=== PATIENT | male | born 1980 | race Caucasian/White ===

== ENCOUNTER 2017-04-03 00:49 | Emergency (ER) | payer SELFPAY ==
[2017-04-03 00:54] VITALS: TEMP 97.9
[2017-04-03] MEDS ORDERED: ONDANSETRON 4 MG/2 ML VIAL IVP ONE (01:05)
[2017-04-03] MEDS ORDERED: NS 1,000 ML IV ONE (01:05)
--- NOTE | 2017-04-03 01:05 | EDPHY ---
H & P Stated Complaint: Abd/back pain, N/D, sweats x3 days HPI/ROS: HPI CHIEF COMPLAINT: Abdominal pain, diarrhea, nausea HISTORY OF PRESENT ILLNESS: Patient very pleasant 37-year-old male significant past medical history for methamphetamine abuse, he presents to the emergency room with 24 hours of nausea, abdominal pain mainly right-sided right lower quadrant right upper quadrant, diarrhea that is nonbloody. Associated nausea no fever no vomiting. Denies chest pain or shortness of breath. Pain is currently 410. Diffuse. Mainly right-sided. Additional note patient is requesting STI testing. He is unsure if he is a current gonorrhea chlamydia. He has no symptoms but states that him and his ex- girlfriend has been passing around an STI. Past Medical History: Methamphetamine abuse Past Surgical History: Tonsillectomy Social History: Daily methamphetamine use Family History: Noncontributory ROS REVIEW OF SYSTEMS: A comprehensive 10 point review of systems is otherwise negative aside from elements mentioned in the history of present illness. Exam Constitutional appears well nontoxic triage nursing summary reviewed, vital signs reviewed, awake/alert. Eyes normal conjunctivae and sclera, EOMI, PERRLA. HENT normal inspection, atraumatic, moist mucus membranes, no epistaxis, neck supple/ no meningismus, no raccoon eyes. Respiratory clear to auscultation bilaterally, normal breath sounds, no respiratory distress, no wheezing. Cardiovascular rate normal, regular rhythm, no murmur, no edema, distal pulses normal. Gastrointestinal soft, mild tender palpation right upper quadrant and right side of the abdomen right lower quadrant, no rebound, no guarding, normal bowel sounds, no distension, no pulsatile mass. Genitourinary no CVA tenderness. Musculoskeletal no midline vertebral tenderness, full range of motion, no calf swelling, no tenderness of extremities, no meningismus, good pulses, neurovascularly intact. Skin pink, warm, & dry, no rash, skin atraumatic. Neurologic awake, alert and oriented x 3, AAOx3, moves all 4 extremities equally, motor intact, sensory intact, CN II-XII intact, normal cerebellar, normal vision, normal speech. Psychiatric normal mood/affect. Heme/Lymph/Immune no lymphadenopathy. Differential diagnosis includes but is not limited to and in no particular order : Bowel obstruction, appendicitis, gallbladder disease, diverticulitis, colitis , enteritis, perforated viscus, gastritis, GERD, esophagitis, urinary tract infection, pyelonephritis, kidney stones Medical Decision Making: IV establishment, IV fluid bolus, Zofran for nausea, morphine for pain control, stool studies, abdominal labs, CT scan abdomen pelvis with IV contrast rule out acute appendicitis re-evaluate. Re-evaluation: CT scan of the abdomen pelvis with IV contrast The results of the study are constipation. Otherwise unremarkable CT scan. The study was read by Dr. Valdes I viewed the images myself on the PACS system. 0340: I did re-evaluate this patient this time resting comfortably no acute distress. Abdomen is soft nontender. He feels better. Blood work is reviewed. CT scan reviewed. I do not appreciate anything acute he feels better. Re-examination abdomen is soft. Requesting be discharged home. Source: Patient - Personal History Current Tetanus/Diphtheria Vaccine: No Current Tetanus Diphtheria and Acellular Pertussis (TDAP): No - Medical/Surgical History Hx Asthma: No Hx Chronic Respiratory Disease: No Hx Diabetes: No Hx Cardiac Disease: No Hx Renal Disease: No Hx Cirrhosis: No Hx Alcoholism: No Hx HIV/AIDS: No Hx Splenectomy or Spleen Trauma: No Other PMH: tonsillectomy - Social History Smoking Status: Former smoker Constitutional: Initial Vital Signs Temperature (C) 36.6 C 04/03/17 00:50 Heart Rate 112 H 04/03/17 00:50 Respiratory Rate 18 04/03/17 00:50 Blood Pressure 129/92 H 04/03/17 00:50 O2 Sat (%) 97 04/03/17 00:50 O2 Delivery Mode Room Air Allergies/Adverse Reactions: No Known Allergies Allergy (Verified 04/03/17 00:54) Home Medications: Medication Instructions Recorded NK [No Known Home Meds] 04/03/17 Medical Decision Making - Data Points Laboratory Results: Laboratory Results 04/03/17 01:13 04/03/17 01:13 04/03/17 04/03/17 04/03/17 02:45 02:45 01:13 WBC RBC Hgb Hct MCV MCH MCHC RDW Plt Count MPV Neut % (Auto) Lymph % (Auto) [place] % (Auto) Eos % (Auto) Baso % (Auto) Nucleat RBC Rel Count Absolute Neuts (auto) Absolute Lymphs (auto) Absolute Monos (auto) Absolute Eos (auto) Absolute Basos (auto) Absolute Nucleated RBC Immature Gran % Immature Gran # Sodium 143 mEq/L mEq/L (134-144) Potassium 4.2 mEq/L mEq/L (3.5-5.2) Chloride 104 mEq/L mEq/L (97-110) Carbon Dioxide 25 mEq/l mEq/l (22-31) Anion Gap 14 mEq/L mEq/L (8-16) BUN 14 mg/dL mg/dL (7-23) Creatinine 0.9 mg/dL mg/dL (0.7-1.3) Estimated GFR > 60 Glucose 94 mg/dL mg/dL (70-100) Calcium 9.9 mg/dL mg/dL (8.5-10.4) Total Bilirubin 0.7 mg/dL mg/dL (0.1-1.4) Conjugated Bilirubin 0.3 mg/dL mg/dL (0.0-0.5) Unconjugated Bilirubin 0.4 mg/dL mg/dL (0.0-1.1) AST 27 IU/L IU/L (17-59) ALT 48 IU/L IU/L (21-72) Alkaline Phosphatase 55 IU/L IU/L (38-126) Total Protein 7.7 g/dL g/dL (6.3-8.2) Albumin 4.7 g/dL g/dL (3.5-5.0) Lipase 133 IU/L IU/L (23-300) Urine Color YELLOW Urine Appearance CLEAR Urine pH 6.0 (5.0-7.5) Ur Specific [place] > 1.035 H (1.002-1.030) Urine Protein NEGATIVE (NEGATIVE) Urine Ketones NEGATIVE (NEGATIVE) Urine Blood NEGATIVE (NEGATIVE) Urine Nitrate NEGATIVE (NEGATIVE) Urine Bilirubin NEGATIVE (NEGATIVE) Urine Urobilinogen NEGATIVE EU EU (0.2-1.0) Ur Leukocyte Esterase NEGATIVE (NEGATIVE) Urine Glucose NEGATIVE (NEGATIVE) N.gonorrhoeae RNA (TMA) Pending 04/03/17 01:13 WBC 6.78 10^3/uL 10^3/uL (3.80-9.50) RBC 5.56 10^6/uL 10^6/uL (4.40-6.38) Hgb 16.6 g/dL g/dL (13.7-17.5) Hct 48.5 % % (40.0-51.0) MCV 87.2 fL fL (81.5-99.8) MCH 29.9 pg pg (27.9-34.1) MCHC 34.2 g/dL g/dL (32.4-36.7) RDW 14.0 % % (11.5-15.2) Plt Count 271 10^3/uL 10^3/uL (150-400) MPV 9.8 fL fL (8.7-11.7) Neut % (Auto) 59.0 % % (39.3-74.2) Lymph % (Auto) 27.6 % % (15.0-45.0) [place] % (Auto) 10.0 % % (4.5-13.0) Eos % (Auto) 2.5 % % (0.6-7.6) Baso % (Auto) 0.6 % % (0.3-1.7) Nucleat RBC Rel Count 0.0 % % (0.0-0.2) Absolute Neuts (auto) 4.00 10^3/uL 10^3/uL (1.70-6.50) Absolute Lymphs (auto) 1.87 10^3/uL 10^3/uL (1.00-3.00) Absolute Monos (auto) 0.68 10^3/uL 10^3/uL (0.30-0.80) Absolute Eos (auto) 0.17 10^3/uL 10^3/uL (0.03-0.40) Absolute Basos (auto) 0.04 10^3/uL 10^3/uL (0.02-0.10) Absolute Nucleated RBC 0.00 10^3/uL 10^3/uL (0-0.01) Immature Gran % 0.3 % % (0.0-1.1) Immature Gran # 0.02 10^3/uL 10^3/uL (0.00-0.10) Sodium Potassium Chloride Carbon Dioxide Anion Gap BUN Creatinine Estimated GFR Glucose Calcium Total Bilirubin Conjugated Bilirubin Unconjugated Bilirubin AST ALT Alkaline Phosphatase Total Protein Albumin Lipase Urine Color Urine Appearance Urine pH Ur Specific [place] Urine Protein Urine Ketones Urine Blood Urine Nitrate Urine Bilirubin Urine Urobilinogen Ur Leukocyte Esterase Urine Glucose N.gonorrhoeae RNA (TMA) Medications Given: Discontinued Medications Sodium Chloride (Ns) 1,000 mls @ 0 mls/hr IV EDNOW ONE; Wide Open PRN Reason: Protocol Stop: 04/03/17 01:06 Last Admin: 04/03/17 01:22 Dose: 1,000 mls Morphine Sulfate (Morphine) 4 mg IVP EDNOW ONE Stop: 04/03/17 01:12 Last Admin: 04/03/17 01:24 Dose: 4 mg Ondansetron HCl (Zofran) 4 mg IVP EDNOW ONE Stop: 04/03/17 01:06 Last Admin: 04/03/17 01:22 Dose: 4 mg Departure - Departure Disposition: Home, Routine, Self-Care Clinical Impression: Abdominal pain Qualifiers: Abdominal location: generalized Qualified Code(s): R10.84 - Generalized abdominal pain Condition: Good Instructions: Acute Abdominal Pain (ED) Additional Instructions: 1. [place] diet next 24-48 hours. 2. Return to the ER for worsening abdominal pain fever vomiting. Referrals: NONE *PRIMARY CARE P,. [Primary Care Provider] - As per Instructions
[2017-04-03 01:42] LABS: % IMMATURE GRANULYOCYTES 0.3 % (0.0-1.1); ABSOLUTE IMMATURE GRANULOCYTES 0.02 10^3/uL (0.00-0.10); ADD DIFF? NO; ADD MORPH? NO; ADD SCAN? NO; ATYPICAL LYMPHOCYTE FLAG 0 (0-99); FRAGMENT RBC FLAG 0 (0-99); HEMATOCRIT 48.5 % (40.0-51.0); HEMOGLOBIN 16.6 g/dL (13.7-17.5); LEFT SHIFT FLG 0 (0-99); LIPEMIA HEMOLYSIS FLAG 90 (0-99); MEAN CELL HEMOGLOBIN 29.9 pg (27.9-34.1); MEAN CELL HEMOGLOBIN CONCENTR. 34.2 g/dL (32.4-36.7); MEAN CELL VOLUME 87.2 fL (81.5-99.8); MEAN PLATELET VOLUME 9.8 fL (8.7-11.7); PLATELET CLUMPS FLAG 0 (0-99); PLATELET COUNT 271 10^3/uL (150-400); RED BLOOD CELL COUNT 5.56 10^6/uL (4.40-6.38)
[2017-04-03] MEDS ORDERED: IOPAMIDOL (ISOVUE-300) 100 ML BTL ONE (01:48)
[2017-04-03 01:59] LABS: ALANINE AMINOTRANSFERASE 48 IU/L (21-72); ALBUMIN 4.7 g/dL (3.5-5.0); ALKALINE PHOSPHATASE 55 IU/L (38-126); ANION GAP 14 mEq/L (8-16); ASPARTATE AMINOTRANSFERASE 27 IU/L (17-59); BILIRUBIN,TOTAL 0.7 mg/dL (0.1-1.4); BILIRUBIN-CONJUGATED 0.3 mg/dL (0.0-0.5); BILIRUBIN-UNCONJUGATED 0.4 mg/dL (0.0-1.1); CALCIUM 9.9 mg/dL (8.5-10.4); CARBON DIOXIDE 25 mEq/l (22-31); CHLORIDE 104 mEq/L (97-110); CREATININE 0.9 mg/dL (0.7-1.3); GLOMERULAR FILTRATION RATE > 60; GLUCOSE 94 mg/dL (70-100); POTASSIUM 4.2 mEq/L (3.5-5.2); SODIUM 143 mEq/L (134-144); TOTAL PROTEIN 7.7 g/dL (6.3-8.2)
[2017-04-03 02:56] LABS: COLOR YELLOW; LEUKOCYTE ESTERASE,URINE NEGATIVE (NEGATIVE); NITRITE,URINE NEGATIVE (NEGATIVE)
[2017-04-03 03:53] VITALS: BP 117/67; PULSE 67; RESP 16; O2SAT 96
== END 2017-04-03 03:52 | disposition home or self-care (01) ==
DX: R10.84 Generalized abdominal pain (principal); E86.9 Volume depletion, unspecified; Z87.891 Personal history of nicotine dependence
CPT/HCPCS: 96374; J2405; Q9967

== ENCOUNTER 2017-08-02 16:48 | Emergency (ER) | payer MEDICAID ==
[2017-08-02 16:54] VITALS: RESP 18
--- NOTE | 2017-08-02 18:51 | EDPHY ---
H & P Time Seen by Provider: 08/02/17 18:50 HPI/ROS: CHIEF COMPLAINT: Choked on food, chest tightness, coughing HISTORY OF PRESENT ILLNESS: The patient is a 37 y/o male complaining of chest tightness after choking on trail mix this evening. He was eating trail mix while he was driving and felt like the trail mix slipped down into his lungs. He did not cough or feels short of breath initially. When he got home he sat in a chair and watch TV. When he stood up from the chair, he began coughing, vomiting, and felt dizzy. The coughing has now resolved and he is asymptomatic. Denies fever, urinary or bowel complaints, recent illness, paresthesias or other pertinent symptoms. REVIEW OF SYSTEMS: Aside from elements discussed in the HPI, a comprehensive 10-point review of systems was reviewed and is negative. 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 Smoking Status: Former smoker Physical Exam: General Appearance: Alert, pleasant Eyes: Pupils equal and round, no conjunctival pallor ENT, Mouth: Mucous membranes moist Neck: Normal inspection Respiratory: Lungs are clear to auscultation Cardiovascular: Regular rate and rhythm Gastrointestinal: Abdomen is soft and non-tender Neurological: A&O, nonfocal Skin: Warm and dry Extremities: Normal inspection Psychiatric: Mood and affect normal Constitutional: Initial Vital Signs Temperature (C) 36.5 C 08/02/17 16:50 Heart Rate 98 08/02/17 16:50 Respiratory Rate 18 08/02/17 16:50 Blood Pressure 149/96 H 08/02/17 16:50 O2 Sat (%) 98 08/02/17 16:50 O2 Delivery Mode Room Air Allergies/Adverse Reactions: No Known Allergies Allergy (Verified 08/02/17 16:50) Home Medications: Medication Instructions Recorded NK [No Known Home Meds] 04/03/17 Medical Decision Making - Diagnostics Imaging Results: Chest x-ray independently reviewed by me reveals no acute disease. ED Course/Re-evaluation: The patient is a 37 y/o male complaining of chest tightness and coughing after choking on trail mix today. He is currently asymptomatic. His physical exam is normal. Chest x-ray ordered. 1851: I reviewed the patient's chest x-ray; there are no acute findings. Reassessed patient and discussed imaging findings. Likely aspiration, now resolved after multiple episodes of vomiting and coughing. I have given him precautions regarding aspiration and a follow up with Dr. Nguyễn, perinatal instructor, if his symptoms recur. Return precautions provided; patient is comfortable with this plan. Departure - Departure Disposition: Home, Routine, Self-Care Clinical Impression: Choking episode Condition: Good Instructions: Aspiration Precautions (ED) Additional Instructions: Follow up with a perinatal instructor if you develope recurrent symptoms. You have been referred to Dr. Walt Nguyễn. Return to the emergency department if you experience shortness of breath, chest pain, uncontrollable coughing, fever or other worsening of your symptoms. Referrals: [facility],. [Clinic] - As per Instructions Walt Nguyễn MD [Medical Doctor] - As per Instructions Report Scribed for: Marianne Watson Report Scribed by: Fatimah Robison Date of Report: 08/02/17 Time of Report: 18:51 Physician Review and Approval Statement: 08/02/17 18:51 Portions of this note were transcribed by a biomedical equipment tech. I personally performed a history, physical exam, medical decision making, and confirmed accuracy of information the transcribed note.
[2017-08-02 19:22] VITALS: BP 120/90; PULSE 134; TEMP 98.1; O2SAT 95
== END 2017-08-02 19:24 | disposition home or self-care (01) ==
DX: R09.89 Other specified symptoms and signs involving the circulatory and respiratory systems (principal); Z87.891 Personal history of nicotine dependence

== ENCOUNTER 2017-08-27 11:32 | Emergency (ER) | payer MEDICAID ==
--- NOTE | 2017-08-27 11:49 | CPEKG ---
Heart Rate: 103 RR Interval: 583 P-R Interval: 144 QRSD Interval: 78 QT Interval: 340 QTC Interval: 445 P [place]: 66 QRS [place]: 85 T Wave [place]: 45 EKG Severity - OTHERWISE NORMAL ECG - EKG Impression: SINUS TACHYCARDIA Electronically Signed By: Will Camarena 27-Aug-2017 15:07:30
[2017-08-27] MEDS ORDERED: ASPIRIN 81 MG CHEWABLE TAB ONE (11:55)
[2017-08-27] MEDS ORDERED: ASPIRIN 81 MG CHEWABLE TAB PO ONE (11:57)
--- NOTE | 2017-08-27 12:01 | EDPHY ---
H & P Stated Complaint: chest tightness sob x 10 min Time Seen by Provider: 08/27/17 11:44 HPI/ROS: CHIEF COMPLAINT: Left-sided chest pain HISTORY OF PRESENT ILLNESS: 37-year-old male generally healthy drove himself to the ER complaining of acute midsternal left-sided chest pain radiating to his back which started approximately 1 hr prior to evaluation. Pain continues. Pain is reproducible with palpation range of motion of his left upper extremity No radiation of pain to his upper extremities. No jaw pain. No syncope or near syncope. No dyspnea. No abdominal pain. No nausea or vomiting. No illicit drug or alcohol use. No diaphoresis. No headache. REVIEW OF SYSTEMS: A ten point review of systems was performed and is negative with the exception of the items mentioned in the HPI PAST MEDICAL & SURGICAL HISTORY: no vasculopathy or cardiac history SOCIAL HISTORY:Nonsmoker no drug use FAMILY HISTORY: No family history of premature coronary artery disease or sudden unexplained PHYSICAL EXAM (Prior to examination, patient consented to physical exam, hands were washed and my usual and customary physical exam procedures followed) 1) GENERAL: Well-developed, well-nourished, alert and oriented. Appears to be in no acute distress. 2) HEAD: Normocephalic, atraumatic 3) HEENT: Pupils equal, round, reactive to light bilaterally. Sclera anicteric. Nasopharynx, oropharynx, clear, no lesions. Ears bilaterally with normal tympanic membranes. 4) NECK: Full range of motion, no meningeal signs. No carotid bruit 5) LUNGS: Clear auscultation bilaterally, no wheezes, no rhonchi, no retractions. 6) HEART: Tender to palpation left medial chest wall which is also reproducible with movement of the left upper extremity at same location. No crepitus. Regular rate and rhythm, no murmur, no heave, no gallop. 7) ABDOMEN: No guarding, no rebound, no focal tenderness, negative McBurney's, negative Bird's, negative Rovsing's, negative peritoneal sign, 8) MUSCULOSKELETAL: Moving all extremities, no focal areas of tenderness, no obvious trauma. No peripheral edema or discoloration. 9) BACK: No CVA tenderness, no midline vertebral tenderness, no fluctuance, no step-off, no obvious trauma, no visual or palpable abnormality. 10) SKIN: No rash, no petechiae. 11) Psychiatric: Patient is oriented X 3, there is no agitation. DIFFERENTIAL DIAGNOSIS: In no particular order, including but not limited to myocardial ischemia, pulmonary embolus, chest wall pain, pleural inflammation and pulmonary infectious causes. - Personal History Current Tetanus/Diphtheria Vaccine: No Current Tetanus Diphtheria and Acellular Pertussis (TDAP): No - Medical/Surgical History Hx Asthma: No Hx Chronic Respiratory Disease: No Hx Diabetes: No Hx Cardiac Disease: No Hx Renal Disease: No Hx Cirrhosis: No Hx Alcoholism: No Hx HIV/AIDS: No Hx Splenectomy or Spleen Trauma: No Other PMH: tonsillectomy - Social History Smoking Status: Former smoker Constitutional: Initial Vital Signs Temperature (C) 37.0 C 08/27/17 11:36 Heart Rate 108 H 08/27/17 11:36 Respiratory Rate 20 08/27/17 11:36 O2 Sat (%) 97 08/27/17 11:36 O2 Delivery Mode Room Air Allergies/Adverse Reactions: No Known Allergies Allergy (Verified 08/02/17 16:50) Home Medications: Medication Instructions Recorded Ibuprofen [Motrin (*)] 600 mg PO Q6 #15 tab 08/27/17 Medical Decision Making - Diagnostics Imaging Results: Imaging Impressions Chest X-Ray 08/27/17 11:58 Impression: Normal chest. ED Course/Re-evaluation: This patient was re-evaluated with serial examinations. Diagnostic results were discussed with him. At most recent examination at 2:20 p.m. he states that he is feeling improvement. I discussed his family history which is not concerning for acute coronary syndrome . Addition I discussed his low risk likelihood for acute coronary syndrome. Addition has a negative D-dimer which I think adequately excludes pulmonary embolus in this patient whom I have a low to medium suspicion for pulmonary embolus. He has reproducible chest pain with palpation and movement which I think is more than likely secondary to musculoskeletal etiology. I recommended NSAIDs. I do not think that further diagnostic studies, emergent cardiology consultation or admission currently indicated. He is agreeable with this. He feels comfortable being discharged. All questions and concerns addressed by myself. Care of patient under supervision of secondary supervising physician Dr Will Camarena with whom I discussed case. Usual and customary discharge precautions and instructions provided - Data Points Laboratory Results: Laboratory Results 08/27/17 11:55 08/27/17 11:55 08/27/1718 08/27/17 11:55 11:55 11:55 WBC 5.07 10^3/uL 10^3/uL (3.80-9.50) RBC 6.27 10^6/uL 10^6/uL (4.40-6.38) Hgb 18.7 g/dL H g/dL (13.7-17.5) Hct 53.4 % H % (40.0-51.0) MCV 85.2 fL fL (81.5-99.8) MCH 29.8 pg pg (27.9-34.1) MCHC 35.0 g/dL g/dL (32.4-36.7) RDW 15.4 % H % (11.5-15.2) Plt Count 273 10^3/uL 10^3/uL (150-400) MPV 9.6 fL fL (8.7-11.7) Neut % (Auto) 50.4 % % (39.3-74.2) Lymph % (Auto) 36.1 % % (15.0-45.0) [place] % (Auto) 10.5 % % (4.5-13.0) Eos % (Auto) 2.0 % % (0.6-7.6) Baso % (Auto) 0.8 % % (0.3-1.7) Nucleat RBC Rel Count 0.0 % % (0.0-0.2) Absolute Neuts (auto) 2.56 10^3/uL 10^3/uL (1.70-6.50) Absolute Lymphs (auto) 1.83 10^3/uL 10^3/uL (1.00-3.00) Absolute Monos (auto) 0.53 10^3/uL 10^3/uL (0.30-0.80) Absolute Eos (auto) 0.10 10^3/uL 10^3/uL (0.03-0.40) Absolute Basos (auto) 0.04 10^3/uL 10^3/uL (0.02-0.10) Absolute Nucleated RBC 0.00 10^3/uL 10^3/uL (0-0.01) Immature Gran % 0.2 % % (0.0-1.1) Immature Gran # 0.01 10^3/uL 10^3/uL (0.00-0.10) D-Dimer < 0.27 ug/mLFEU ug/mLFEU (0.00-0.50) Sodium 144 mEq/L mEq/L (135-145) Potassium 4.9 mEq/L mEq/L (3.5-5.2) Chloride 106 mEq/L mEq/L (97-110) Carbon Dioxide 21 mEq/l L mEq/l (22-31) Anion Gap 17 mEq/L H mEq/L (8-16) BUN 10 mg/dL mg/dL (7-23) Creatinine 0.9 mg/dL mg/dL (0.7-1.3) Estimated GFR > 60 Glucose 95 mg/dL mg/dL (70-100) Calcium 9.8 mg/dL mg/dL (8.5-10.4) Total Bilirubin 1.8 mg/dL H mg/dL (0.1-1.4) Conjugated Bilirubin 0.4 mg/dL mg/dL (0.0-0.5) Unconjugated Bilirubin 1.4 mg/dL H mg/dL (0.0-1.1) AST 59 IU/L IU/L (17-59) ALT 46 IU/L IU/L (21-72) Alkaline Phosphatase 79 IU/L IU/L (38-126) Troponin I < 0.012 ng/mL ng/mL (0.000-0.034) Total Protein 8.0 g/dL g/dL (6.3-8.2) Albumin 4.7 g/dL g/dL (3.5-5.0) Lipase 114 IU/L IU/L (23-300) Specimen Hemolysis 103 Medications Given: Discontinued Medications Aspirin (Aspirin) 324 mg PO EDNOW ONE Stop: 08/27/17 11:58 Last Admin: 08/27/17 11:58 Dose: 324 mg Ketorolac Tromethamine (Toradol) 15 mg IVP EDNOW ONE Stop: 08/27/17 13:16 Last Admin: 08/27/17 13:25 Dose: 15 mg Departure - Departure Disposition: Home, Routine, Self-Care Clinical Impression: Chest wall pain Condition: Good Instructions: Chest Pain (ED), Chest Wall Pain (ED) Additional Instructions: Seek immediate medical attention if you developed worsening or new chest pain, if you develop shortness of breath, or any other symptoms that concern you. Referrals: Esau Quinonez MD [place] - 2-3 days, call for appt. Prescriptions: Ibuprofen [Motrin (*)] 600 mg PO Q6 #15 tab
[2017-08-27 12:07] LABS: PLATELET COUNT 273 10^3/uL (150-400)
[2017-08-27] MEDS ORDERED: KETOROLAC 30 MG/1 ML SDV IVP ONE (13:15)
[2017-08-27 14:46] VITALS: BP 139/97; PULSE 86; RESP 16; TEMP 97.5; O2SAT 96
== END 2017-08-27 14:45 | disposition home or self-care (01) ==
DX: R07.89 Other chest pain (principal); Z87.891 Personal history of nicotine dependence
CPT/HCPCS: 96374; J1885

== ENCOUNTER 2017-08-29 14:50 | Emergency (ER) | payer MEDICAID ==
[2017-08-29 14:56] VITALS: BP 122/84; PULSE 118; RESP 20; TEMP 98.2; O2SAT 96
--- NOTE | 2017-08-29 15:16 | EDPHY ---
H & P Stated Complaint: flu like symptoms/cough/congestions/fever/dizzy Time Seen by Provider: 08/29/17 15:15 HPI/ROS: HPI: This is a 37-year-old male who presents with Chief Complaint: flu like symptoms/cough/congestions/fever/dizzy Location: body Quality:fever Duration: Since last night Signs and Symptoms: + subjective fever, no wheezing, no shortness of breath, no chest pain, no abdominal pain, no nausea, no vomiting, no dysphagia Timing: Acute Severity: Mild Context: Patient is a former smoker, generally healthy, presents with complaints of sudden onset of low-grade fever and body aches starting last night accompanied by and productive cough. He is concerned as when he was at the gym yesterday he took a meloxicam from his friend for post workout soreness. He admits that he should not take medications that are not prescribed for him. Patient reports that when he swallowed the white tablet if felt like it was stuck in his upper esophagus. He started to cough and then vomited. Patient is concerned that he may have aspirated the pill fragments and now has pneumonia. No history of lung disease. Patient is able to eat and drink fluids without difficulty since the incident. No history of GERD/ dysphagia. Modifying Factors: None Comment: ROS: see HPI Constitutional: No fever, no chills, no weight loss Eyes: No blurred vision Respiratory: No shortness of breath, no cough Cardiovascular: No chest pain Gastrointestinal: No nausea, no vomiting, no diarrhea Genitourinary: No dysuria Extremities: No myalgias Neurologic: No weakness, no numbness Skin: No rashes Hematologic: No bruising, no bleeding MEDICAL/SURGICAL/SOCIAL HISTORY: Medical history: Generally healthy. Does not take any regular medications. Surgical history: Tonsillectomy Social history: Employed. CONSTITUTIONAL: Extremely well-appearing but anxious adult white male, awake and alert, no obvious distress HEENT: Atraumatic and normocephalic, PERRL, EOMI. Tympanic membranes clear. Oropharynx clear, no exudate and moist pink mucosa. Airway patent. No lymphadenopathy. No meningismus. Cardiovascular: Normal S1/S2, tachycardia, regular rhythm, without murmur rub or gallop. PULMONARY/CHEST: Symmetrical and nontender. Clear to auscultation bilaterally. Good air movement. No accessory muscle usage. ABDOMEN: Soft, nondistended, nontender, no rebound, no guarding, no peritoneal signs, no masses or organomegaly. No CVAT. EXTREMITIES: 2/2 pulses, strength 5/5, no deformities, no clubbing, no cyanosis or edema. NEUROLOGICAL: no focal neuro deficits. GCS 15. Source: Patient Exam Limitations: No limitations - Personal History Current Tetanus/Diphtheria Vaccine: Yes - Medical/Surgical History Hx Asthma: No Hx Chronic Respiratory Disease: No Hx Diabetes: No Hx Cardiac Disease: No Hx Renal Disease: No Hx Cirrhosis: No Hx Alcoholism: No Hx HIV/AIDS: No Hx Splenectomy or Spleen Trauma: No Other PMH: tonsillectomy - Social History Smoking Status: Former smoker Constitutional: Initial Vital Signs Temperature (C) 36.8 C 08/29/17 14:53 Heart Rate 118 H 08/29/17 14:53 Respiratory Rate 20 08/29/17 14:53 Blood Pressure 122/84 H 08/29/17 14:53 O2 Sat (%) 96 08/29/17 14:53 O2 Delivery Mode Room Air Allergies/Adverse Reactions: No Known Allergies Allergy (Verified 08/29/17 14:53) Home Medications: Medication Instructions Recorded Ibuprofen [Motrin (*)] 600 mg PO Q6 #15 tab 08/27/17 Benzonatate [Tessalon Pearles (RX)] 100 mg PO Q6 PRN #15 cap 08/29/17 Oseltamivir Phosphate [Tamiflu 75 75 mg PO BID #10 cap 08/29/17 mg (*)] Medical Decision Making ED Course/Re-evaluation: Chest x-ray, oral medications, influenza test ordered Given GI cocktail No signs of respiratory distress/airway compromise/hypoxia/wheezing Influenza B positive; Tamiflu candidate and patient is insistent on having due to recent travel outside of the [place] Chest x-ray my read shows no effusion, no opacity, no pneumothorax, no widened mediastinum Advised supportive care This patient was seen under the supervision of my primary supervising physician. I evaluated care for this patient independently. Differential Diagnosis: Differential diagnosis includes but is not limited to pill esophagitis, GERD, viral syndrome, influenza, pneumonitis. - Data Points Laboratory Results: 08/29/17 14:50 Nasal Influenza A PCR NEGATIVE FOR FLU A (NEGATIVE) Nasal Influenza B PCR FLU B DETECTED H (NEGATIVE) RSV (PCR) NEGATIVE FOR RSV (NEGATIVE) Medications Given: Discontinued Medications Al Hydroxide/Mg Hydroxide (Maalox Susp) 30 ml PO ONCE ONE Stop: 08/29/17 15:27 Last Admin: 08/29/17 15:44 Dose: 30 ml Hyoscyamine Sulfate (Levsin, Hyomax-Sl) 0.25 mg PO ONCE ONE Stop: 08/29/17 15:27 Last Admin: 08/29/17 15:44 Dose: 0.25 mg Lidocaine (Lidocaine 2% Viscous) 15 ml PO ONCE ONE Stop: 08/29/17 15:27 Last Admin: 08/29/17 15:44 Dose: 15 ml Departure - Departure Disposition: Home, Routine, Self-Care Clinical Impression: Influenza B Condition: Good Instructions: Influenza (ED) Additional Instructions: Consume a minimum of 64 oz of water or electrolyte fluid replacement drinks that include Gatorade, Powerade, Pedialyte. Eat a bland diet for the next 48 hours and then slowly advance as tolerated. Take Zofran 1 tab every 4 hours as needed for nausea, vomiting. Rest as much as possible until you are feeling better. Take Tylenol 650 mg every 4 hr and/or ibuprofen 600 mg every 6-8 hours as needed for pain, fever. Referrals: [facility],. [Clinic] - As per Instructions Prescriptions: Benzonatate [Tessalon Pearles (RX)] 100 mg PO Q6 PRN #15 cap PRN Reason: Cough, Moderate Oseltamivir Phosphate [Tamiflu 75 mg (*)] 75 mg PO BID #10 cap
[2017-08-29] MEDS ORDERED: MAG HYDROX/AL HYDROX/SIMETH 30 ML UDCUP PO ONE (15:26)
[2017-08-29] MEDS ORDERED: LIDOCAINE 2% VISCOUS 15 ML UDCUP PO ONE (15:26)
[2017-08-29] MEDS ORDERED: HYOSCYAMINE SULFATE 0.125 MG TAB PO ONE (15:26)
== END 2017-08-29 15:53 | disposition home or self-care (01) ==
DX: J10.1 Influenza due to other identified influenza virus with other respiratory manifestations (principal); Z87.891 Personal history of nicotine dependence

== ENCOUNTER 2018-06-23 08:38 | Emergency (ER) | payer MEDICAID ==
--- NOTE | 2018-06-23 08:50 | EDPHY ---
H & P Stated Complaint: L pinky toe area of pain/swelling x 2 days -" spiderbite" ? Time Seen by Provider: 06/23/18 08:49 - Medical/Surgical History Hx Asthma: No Hx Chronic Respiratory Disease: No Hx Diabetes: No Hx Cardiac Disease: No Hx Renal Disease: No Hx Cirrhosis: No Hx Alcoholism: No Hx HIV/AIDS: No Hx Splenectomy or Spleen Trauma: No Other PMH: tonsillectomy - Social History Smoking Status: Former smoker Constitutional: Initial Vital Signs Temperature (C) 36.7 C 06/23/18 08:42 Heart Rate 75 06/23/18 08:42 Respiratory Rate 16 06/23/18 08:42 Blood Pressure 126/74 H 06/23/18 08:42 O2 Sat (%) 97 06/23/18 08:42 O2 Delivery Mode Room Air Allergies/Adverse Reactions: No Known Allergies Allergy (Verified 08/29/17 14:53) Home Medications: Medication Instructions Recorded Cephalexin [Keflex (RX)] 500 mg PO TID #20 cap 06/23/18 Sulfamethox/Tmp 800/160 mg 1 tab PO BID #14 tab 06/23/18 [Bactrim Ds] Medical Decision Making ED Course/Re-evaluation: CHIEF COMPLAINT: Red, swollen left foot HISTORY OF PRESENT ILLNESS: The patient is a 38 y/o male arriving with his family complaining of acute onset redness, swelling, and pain in his left foot upon waking yesterday morning. Symptoms have worsened today. He cannot identify any preceding injury or other insult he can identify, though he does mention he works standing on his feet 10 hours a day. He denies fever, chills, or any symptoms of systemic illness. No history of diabetes or immunocompromise. REVIEW OF SYSTEMS: A comprehensive 10 system review of systems is otherwise negative aside from elements mentioned in the history of present illness and medical decision making. PHYSICAL EXAM: HR, BP, O2 Sat, RR. Temp noted General Appearance: Alert, well hydrated, appropriate, and non-toxic appearing. Head: Atraumatic without scalp tenderness or obvious injury Eyes: Pupils equal, round, reactive to light and accommodation, EOMI, no trauma , no injection. Nose: Atraumatic, no rhinorrhea, clear. Throat: Mucus membranes moist. Neck: Supple Respiratory: No retractions, no distress, no wheezes, and no accessory muscle use. Lungs are clear to auscultation bilaterally. Cardiovascular: Regular rate and rhythm, no murmurs, rubs, or gallops. Good capillary refill all extremities. Gastrointestinal: Abdomen is soft, nontender, non-distended, no masses, no rebound, no guarding, no peritoneal signs. Musculoskeletal: Left foot: Left little toe bright red with associated tenderness, lateral and dorsum of foot somewhat cellulitic, 3-4 flat and non- fluid-filled erythematous patches on dorsum of foot. No lymphangitis or streaking. Otherwise normal active ROM of all extremities, atraumatic. Neurological: Alert, appropriate, and interactive. Nonfocal. Skin: No rashes, good turgor, no nodules on palpation. Past medical history: Denies Past surgical history: Tonsillectomy Family history: Noncontributory Social history: Family at bedside. Former smoker. Goes to [employer] meetings. DIFFERENTIAL DIAGNOSIS: The differential diagnosis for the patient's symptoms included but was not limited to cellulitis, staph infection, strep infection, insect bite, gout, and sepsis. MEDICAL DECISION MAKING: This is a 38 y/o male who presents with a 1-day history of cellulitis on his left foot. Concern for staph and strep infection. No lymphangitis or systemic symptoms. Plan for dual-coverage treatment with Bactrim and Keflex. Doubt necrotizing fascitis. Discussed strict follow up and return precautions. He understands he must return to the ED if symptoms worsen at all or fail to improve on oral antibiotics. He is comfortable with this plan. Departure - Departure Disposition: Home, Routine, Self-Care Clinical Impression: Cellulitis Qualifiers: Site of cellulitis: extremity Site of cellulitis of extremity: lower extremity Laterality: left Qualified Code(s): L03.116 - Cellulitis of left lower limb Condition: Good Instructions: Cephalexin (By mouth), Sulfamethoxazole/Trimethoprim (By mouth), Cellulitis (ED) Additional Instructions: 1. Take Bactrim and Keflex as prescribed without fail. Be sure to complete the entire prescription even if symptoms have resolved. 2. Use ibuprofen and Tylenol as directed as needed for pain or if you develop a fever. 3. It is imperative that you return to the ED for any worsening of your symptoms including spread of redness, swelling, or rash up your leg, fever, chills, or other feelings of being ill systemically. You should also return if symptoms have not improved over the next 24-48 hours. Referrals: Chadd Hope MD [Medical Doctor] - As per Instructions [facility],. [Clinic] - As per Instructions Prescriptions: Cephalexin [Keflex (RX)] 500 mg PO TID #20 cap Sulfamethox/Tmp 800/160 mg [Bactrim Ds] 1 tab PO BID #14 tab Report Scribed for: Will Camarena Report Scribed by: Sangeetha Barrow Date of Report: 06/23/18 Time of Report: 09:00
[2018-06-23] MEDS ORDERED: SULFAMETHOX/TMP 800/160 MG 1 TAB PO ONE (09:04)
[2018-06-23] MEDS ORDERED: CEPHALEXIN 500 MG CAP PO ONE (09:04)
[2018-06-23 09:21] VITALS: BP 125/78
== END 2018-06-23 09:21 | disposition home or self-care (01) ==
DX: L03.116 Cellulitis of left lower limb (principal)

== ENCOUNTER 2018-06-23 22:49 | Emergency (ER) | payer MEDICAID ==
[2018-06-23 23:27] LABS: PLATELET COUNT 349 10^3/uL (150-400)
[2018-06-23] MEDS: VANCOMYCIN HCL/NORMAL SALINE 250 ML IV ONE (23:47)
--- NOTE | 2018-06-24 00:10 | EDPHY ---
H & P Time Seen by Provider: 06/23/18 23:00 HPI/ROS: CLINICAL IMPRESSION: Left foot cellulitis with lymphangitis ASSESSMENT/PLAN: This is a 38-year-old male with a history of MRSA who presents to the emergency department for the 2nd time today with concerns of a worsening left foot cellulitis. Compared to pictures of the foot earlier today, patient does appear to have developed increased swelling and redness now affecting the entire dorsum of the foot and extending to the ankle. Distal neurovascular exam is intact, cap refill intact although patient does report subjective paresthesias to the foot. He also has pain with ambulation. No reproducible pain to palpation on my exam of the foot or leg. No obvious open wound. No radiologic evidence for fracture, foreign body, or osteomyelitis. Labs show no leukocytosis, renal insufficiency, electrolyte imbalance. Vital signs stable, no tachycardia, fever, or signs of sepsis. No clinical indication of necrotizing fasciitis. Case discussed with Dr. Johnson. Patient received an IV dose of vancomycin and was encouraged to follow up in the ER in 12 hr for recheck. Borders of redness were outlined. Low threshold for return to ED sooner as outlined in person and discharge papers. DIFFERENTIAL DX: Differential diagnosis includes but not limited to cellulitis, septic joint, necrotizing fasciitis, osteomyelitis, deep space abscess, gout, inflammatory arthritis ED PROCEDURES: see lab and imaging results below ED COURSE: Case discussed with Dr. Johnson No leukocytosis or electrolyte imbalance. X- rays show no evidence of foreign body, fracture, or bony lesion. Borders of erythema and swelling were outlined. Patient received a single dose of IV vancomycin and was encouraged to follow up in the ER in 12 hr for recheck. CHIEF COMPLAINT: Left foot pain redness and swelling HPI: This is a 38-year-old male who presents to the emergency department for the 2nd time in 12 hr for worsening left foot redness and swelling. Patient was seen at 10:00 a.m. This morning in this ED and diagnosed with a left 5th toe cellulitis. He does have a history of MRSA. He was started on Bactrim and Keflex and reports he has had 2 doses of this. He reports he has been elevating the leg at home. His friend has noted that the foot has become more swollen, redness has spread above the ankle, and he appears to have a small red streak on the anterior lower leg. He reports no fevers, chills, palpitations, vomiting but does feel a little nauseous. He now reports that his foot feels numb and tingly and he does have pain with weight-bearing. No reported trauma. 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 Neurological: Sensory changes noted, no weakness.] PHYSICAL EXAM: General Appearance: Alert, oriented, appropriate for age, cooperative, NAD, well hydrated, non-toxic appearing, VSS, no hypoxia. Neurological: Alert and oriented x 3, normal sensation and strength of extremities Skin: Erythema noted to the dorsum of the entire left foot extending to the anterior ankle. Compared to pictures from earlier today, this appears new with increased swelling. Distal neurovascular exam intact. Cap refill 2 sec. Full range of motion of ankle foot and toes. No clinical indication of septic joint. Vesicles noted at the webspace between the 4th and 5th toe, no laceration or open wound between the toes or on the bottom of the foot. There is an area of lymphangitis on the left anterior leg, no reproducible tenderness over this area and no calf pain. Full range of motion of the knee. Musculoskeletal: See above, full range of motion of ankle foot toes and knee MEDICAL DECISION MAKING: Patient was seen independently.Secondary supervising physician at time of evaluation was Dr Johnson. Diagnosis: Left foot cellulitis. New, requires workup Summary: See assessment and plan for summary of ED visit Independent visualization of images, tracing, or specimens yes. Review / Summarize previous medical records yes, reviewed ED records from earlier today Discussed patient with another provider Dr. Johnson Patient Progress stable. Smoking Status: Former smoker Constitutional: Initial Vital Signs Temperature (C) 36.3 C 06/23/18 22:51 Heart Rate 78 06/23/18 22:51 Respiratory Rate 20 06/23/18 22:51 Blood Pressure 115/50 L 06/23/18 22:51 O2 Sat (%) 97 06/23/18 22:51 O2 Delivery Mode Room Air Allergies/Adverse Reactions: No Known Allergies Allergy (Verified 06/23/18 22:51) Home Medications: Medication Instructions Recorded Cephalexin [Keflex (RX)] 500 mg PO TID #20 cap 06/23/18 Sulfamethox/Tmp 800/160 mg 1 tab PO BID #14 tab 06/23/18 [Bactrim Ds] MDM/Departure - MDM Imaging: I viewed and interpreted images myself Medications Given: Vancomycin/Sodium Chloride (Vancomycin 1 Gm (Premix)) 250 mls @ 250 mls/hr IV ONCE ONE PRN Reason: Protocol Stop: 06/24/18 00:38 Last Admin: 06/23/18 23:47 Dose: 250 mls - Depart Disposition: Home, Routine, Self-Care Clinical Impression: Cellulitis of left foot Condition: Good Instructions: Cellulitis (ED) Additional Instructions: DISCHARGE INSTRUCTIONS FROM YOUR DOCTOR Thank you for visiting our emergency department today. Please keep in mind that discharge from the emergency department does not mean that there is nothing wrong - it simply means that we have not identified an emergency condition that requires further evaluation or treatment in the hospital. You should always plan to follow up with primary care for re-evaluation of your condition in the next 2-3 days. If you have been referred to a specialist, please call as soon as possible (today or tomorrow) to schedule your follow up appointment at the appropriate time. X-rays of your foot show no evidence of bone infection, fracture or foreign body. Labs were reassuring, you had a normal white blood count and normal electrolytes. Vital signs were stable. He received a dose of IV vancomycin. Continue taking oral antibiotics as prescribed. Please return to the emergency department in 12 hr for recheck. Return to ER sooner for worsening pain, spreading redness or swelling, inability to bear weight on the leg, pain with movement of the ankle, toes, foot or knee, development of fevers greater than 100.4, vomiting, or any other concern. People present with illnesses and injuries in different ways, and it is always possible that we have missed something. You may always return for re-evaluation if symptoms worsen or if they are not improving or if you develop new/different symptoms. Again, thank you for choosing our emergency department. We hope that you feel better. Referrals: NONE *PRIMARY CARE P,. [Primary Care Provider] - As per Instructions [facility],. [Clinic] - As per Instructions
[2018-06-24 01:04] VITALS: BP 125/71
== END 2018-06-24 01:04 | disposition home or self-care (01) ==
DX: L03.116 Cellulitis of left lower limb (principal); Z86.14 Personal history of Methicillin resistant Staphylococcus aureus infection
CPT/HCPCS: 96365; J3370

== ENCOUNTER 2018-06-24 13:39 | Emergency (ER) | payer MEDICAID ==
[2018-06-24 13:48] VITALS: BP 115/67
--- NOTE | 2018-06-24 14:30 | EDPHY ---
H & P Stated Complaint: l foot infection here for recheck/seen yesterday Time Seen by Provider: 06/24/18 14:29 - Personal History Current Tetanus Diphtheria and Acellular Pertussis (TDAP): Yes - Medical/Surgical History Hx Asthma: No Hx Chronic Respiratory Disease: No Hx Diabetes: No Hx Cardiac Disease: No Hx Renal Disease: No Hx Cirrhosis: No Hx Alcoholism: No Hx HIV/AIDS: No Hx Splenectomy or Spleen Trauma: No Other PMH: tonsillectomy - Social History Smoking Status: Former smoker Constitutional: Initial Vital Signs Temperature (C) 36.5 C 06/24/18 13:45 Heart Rate 83 06/24/18 13:45 Respiratory Rate 17 06/24/18 13:45 Blood Pressure 115/67 06/24/18 13:45 O2 Sat (%) 95 06/24/18 13:45 O2 Delivery Mode Room Air Allergies/Adverse Reactions: No Known Allergies Allergy (Verified 06/24/18 13:44) Home Medications: Medication Instructions Recorded Cephalexin [Keflex (RX)] 500 mg PO TID #20 cap 06/23/18 Sulfamethox/Tmp 800/160 mg 1 tab PO BID #14 tab 06/23/18 [Bactrim Ds] Medical Decision Making ED Course/Re-evaluation: CHIEF COMPLAINT: Left foot cellulitis HISTORY OF PRESENT ILLNESS: The patient is a 38 y/o male returning for a recheck of his left foot cellulitis and another round of IV antibiotics. I saw him here yesterday for the same complaint and treated him at that time with PO Bactrim and Keflex. He returned later that night after redness spread up his leg and was treated with a dose of IV Vancomycin and advised to return today for recheck and additional dose of antibiotics. Redness, swelling, and pain has significantly improved since then. No fever or other symptoms of systemic illness. REVIEW OF SYSTEMS: A comprehensive 10 system review of systems is otherwise negative aside from elements mentioned in the history of present illness and medical decision making. PHYSICAL EXAM: HR, BP, O2 Sat, RR. Temp noted General Appearance: Alert, well hydrated, appropriate, and non-toxic appearing. Head: Atraumatic without scalp tenderness or obvious injury Eyes: Pupils equal, round, reactive to light and accommodation, EOMI, no trauma , no injection. Nose: Atraumatic, no rhinorrhea, clear. Throat: Mucus membranes moist. Neck: Supple. Respiratory: No distress. Cardiovascular: Good capillary refill all extremities. Musculoskeletal: Mild left little toe erythema with scarce redness over dorsum of foot, significantly improved from yesterday. Normal active ROM of all extremities, atraumatic. Neurological: Alert, appropriate, and interactive. Nonfocal. Skin: Good turgor, no nodules on palpation. Past medical history: Skin infection Past surgical history: Tonsillectomy Family history: Noncontributory Social history: Lives in [place]. Single. Employed. Former smoker. Prior medial records reviewed. DIFFERENTIAL DIAGNOSIS: The differential diagnosis for the patient's symptoms included but was not limited to cellulitis, staph infection, strep infection, insect bite, gout. MEDICAL DECISION MAKING: This is a 38 y/o male who returns for recheck of left foot cellulitis. Exam has improved significantly since yesterday with only slight erythema remaining over left little toe and dorsum of foot. No evidence of systemic illness. Plan for repeat dose of 1gm IV Vancomycin here and discharge on the Bactrim and Keflex prescribed yesterday to continue at home. Follow up instructions and return precautions discussed. He is comfortable with this plan. - Data Points Medications Given: Discontinued Medications Vancomycin/Sodium Chloride (Vancomycin 1 Gm (Premix)) 250 mls @ 250 mls/hr IV EDNOW ONE PRN Reason: Protocol Stop: 06/24/18 15:32 Last Admin: 06/24/18 14:50 Dose: 250 mls Departure - Departure Disposition: Home, Routine, Self-Care Clinical Impression: Cellulitis Qualifiers: Site of cellulitis: extremity Site of cellulitis of extremity: lower extremity Laterality: left Qualified Code(s): L03.116 - Cellulitis of left lower limb Condition: Good Instructions: Cephalexin (By mouth), Sulfamethoxazole/Trimethoprim (By mouth), Cellulitis (ED) Additional Instructions: 1. Take Bactrim and Keflex as prescribed yesterday. Be sure to complete the entire prescription even if you feel completely better. 2. You do not need to return to the ED for further IV antibiotics unless symptoms worsen as discussed. 3. Follow up with your primary care provider as needed for any unimproved symptoms over the next few days. Referrals: [facility],. [Clinic] - As per Instructions Stand Alone Forms: Work Excuse Report Scribed for: Will Camarena Report Scribed by: Sangeetha Barrow Date of Report: 06/24/18 Time of Report: 14:34
[2018-06-24] MEDS: VANCOMYCIN HCL/NORMAL SALINE 250 ML IV ONE (14:50)
== END 2018-06-24 16:12 | disposition home or self-care (01) ==
DX: L03.116 Cellulitis of left lower limb (principal); Z79.2 Long term (current) use of antibiotics
CPT/HCPCS: 96365; J3370

== ENCOUNTER 2018-07-11 06:35 | Emergency (ER) | payer MEDICAID ==
[2018-07-11] MEDS ORDERED: IBUPROFEN 600 MG TAB PO ONE (07:29)
--- NOTE | 2018-07-11 07:32 | EDPHY ---
H & P Stated Complaint: fever, chills,cough, body aches Time Seen by Provider: 07/11/18 07:16 HPI/ROS: CHIEF COMPLAINT: Fever, myalgias HISTORY OF PRESENT ILLNESS: 38-year-old male presents with fever and myalgias. Onset of moderate myalgias yesterday, associated with fever and chills and a productive cough. He also has a moderate sore throat and fatigue. He received a flu vaccination this year. Tolerating oral fluids and food well. REVIEW OF SYSTEMS: complete 10 point ROS reviewed and is negative except for the noted elements in the HPI - Personal History Current Tetanus Diphtheria and Acellular Pertussis (TDAP): Yes - Medical/Surgical History Hx Asthma: No Hx Chronic Respiratory Disease: No Hx Diabetes: No Hx Cardiac Disease: No Hx Renal Disease: No Hx Cirrhosis: No Hx Alcoholism: No Hx HIV/AIDS: No Hx Splenectomy or Spleen Trauma: No Other PMH: tonsillectomy - Social History Smoking Status: Former smoker Alcohol Use: Sober Drug Use: None - Physical Exam Exam: General Appearance: Alert, pleasant Eyes: Pupils equal and round, no conjunctival pallor or injection ENT, Mouth: Mucous membranes moist, pharyngeal erythema Neck: Normal inspection Respiratory: Lungs are clear to auscultation Cardiovascular: Regular rate and rhythm Gastrointestinal: Abdomen is soft and nontender Neurological: A&O, nonfocal, normal gait Skin: Warm and dry, no rash Extremities: Normal inspection Psychiatric: Mood and affect normal Constitutional: Initial Vital Signs Temperature (C) 37.5 C 07/11/18 06:44 Heart Rate 119 H 07/11/18 06:44 Respiratory Rate 20 07/11/18 06:44 Blood Pressure 109/68 07/11/18 06:44 O2 Sat (%) 97 07/11/18 06:44 O2 Delivery Mode Room Air Allergies/Adverse Reactions: No Known Allergies Allergy (Verified 07/11/18 06:44) Home Medications: Medication Instructions Recorded Oseltamivir Phosphate [Tamiflu 75 75 mg PO BID #10 cap 07/11/18 mg (RX)] Medical Decision Making - Diagnostics Imaging Results: CXR: NAD Imaging: I viewed and interpreted images myself ED Course/Re-evaluation: This pt presents with influenza. He is non-toxic appearing and well hydrated. Safe/stable for d/c home. Symptomatic care and warning signs discussed. Differential Diagnosis: includes though not limited to pneumonia, dehydration, sinusitis, meningitis - Data Points Medications Given: Discontinued Medications Dexamethasone (Decadron) 4 mg PO EDNOW ONE Stop: 07/11/18 07:40 Last Admin: 07/11/18 07:43 Dose: 4 mg Ibuprofen (Motrin) 600 mg PO EDNOW ONE Stop: 07/11/18 07:30 Last Admin: 07/11/18 07:43 Dose: 600 mg Departure - Departure Disposition: Home, Routine, Self-Care Clinical Impression: Influenza A Condition: Good Instructions: Influenza (ED) Additional Instructions: Alternate Tylenol and ibuprofen every 3 hr for fever and pain control. Drink plenty of fluids. Return for worsening symptoms or any concerns. Referrals: Varinder Baptiste MD [Medical Doctor] - As per Instructions Stand Alone Forms: Work Excuse Prescriptions: Oseltamivir Phosphate [Tamiflu 75 mg (RX)] 75 mg PO BID #10 cap
[2018-07-11] MEDS ORDERED: DEXAMETHASONE 4 MG TAB PO ONE (07:39)
[2018-07-11 08:24] VITALS: BP 121/66
== END 2018-07-11 08:23 | disposition home or self-care (01) ==
DX: J10.1 Influenza due to other identified influenza virus with other respiratory manifestations (principal); Z87.891 Personal history of nicotine dependence

== ENCOUNTER 2018-07-12 16:34 | Inpatient (IN) | payer MEDICAID ==
[2018-07-12] MEDS ORDERED: ACETAMINOPHEN 500 MG TAB PO ONE (17:17)
[2018-07-12] MEDS ORDERED: IPRATROPIUM/ALBUTEROL 3 ML DEYVIAL IH ONE (17:26)
[2018-07-12] MEDS ORDERED: NS 1,000 ML IV ONE ×3 (17:26→23:58)
--- NOTE | 2018-07-12 17:28 | EDPHY ---
H & P Time Seen by Provider: 07/12/18 17:14 HPI/ROS: CHIEF COMPLAINT: Hard time breathing HISTORY OF PRESENT ILLNESS: Patient was diagnosed with influenza a yesterday. Last 24 hr he states that he has had persistent high fevers associated with sore throat and headache and hard time breathing. He says his chest hurts in his back hurts and symptoms are worse with exertion. Associated with a slight cough but not productive of sputum. No neck stiffness, no leg swelling. Symptoms moderate. Took 200 mg ibuprofen at 4:00 p.m.. REVIEW OF SYSTEMS: Eye: no change in vision ENT: HPI no earache, mild sore throat Cardiac: HPI no palpitations Pulmonary: HPI Abdomen: no vomiting, diarrhea, abdominal pain Musculoskeletal: HPI Skin: no rash Neuro: HPI Constitutional: HPI : no urinary symptoms A comprehensive 10 point review of systems is otherwise negative aside from elements mentioned in the history of present illness. PAST MEDICAL HISTORY: Negative except for tonsillectomy Social history: Nonsmoker, no drugs General Appearance: Alert and conversant, cooperative. Eyes: No scleral icterus. ENT, Mouth: Slightly dry mucous membranes. Respiratory: Decreased breath sounds bilaterally with slight expiratory wheeze , no focal lung sounds. Speaks in full sentences. Cardiovascular: Regular rate and rhythm. Tachycardic. Gastrointestinal: Abdomen is soft and non tender. Neurological: Alert, face symmetric, normal motor and sensory in extremities. Skin: Warm and dry, no rashes. No petechiae or purpura. Musculoskeletal: No neck stiffness, normal ROM. Psychiatric: Not agitated. Emergency Department course/MDM: Noted to be febrile and tachycardic. 1 g Tylenol, normal saline 2 L, chest x- ray and DuoNeb ordered. 1753: Bilateral pneumonia on chest x-ray discussed with the patient. Blood cultures and respiratory panel, lactate screening, sepsis fluid bolus, will antibiotics to include ceftriaxone azithromycin and vancomycin for possible post flu influenza staph pneumonia. Admission to hospitalist service; lactate 1.5 does not have septic shock or severe sepsis at this time. Smoking Status: Former smoker Constitutional: Initial Vital Signs Temperature (C) 37.9 C 07/12/18 16:38 Heart Rate 128 H 07/12/18 16:38 Respiratory Rate 20 07/12/18 16:38 Blood Pressure 124/57 H 07/12/18 16:38 O2 Sat (%) 97 07/12/18 16:38 O2 Delivery Mode Room Air Allergies/Adverse Reactions: No Known Allergies Allergy (Verified 07/11/18 06:44) Home Medications: Medication Instructions Recorded Oseltamivir Phosphate [Tamiflu 75 75 mg PO BID #10 cap 07/11/18 mg (RX)] Gabapentin [Neurontin 300 MG (*)] 300 mg PO TID 07/12/18 Medical Decision Making - Diagnostics Imaging Results: Imaging Impressions Chest X-Ray 07/12/18 17:26 Impression: Bilateral pneumonia. Findings and recommendations discussed with Emergency Department physician, Deshawn Ramos M.D., at 1752 hours, on July 12, 2018. Final report concurs with initial preliminary interpretation. Bilateral infiltrates, pneumonia. Imaging: I viewed and interpreted images myself Differential Diagnosis: Differential diagnosis considered for shortness of breath including but not limited to pulmonary infectious process, COPD, asthma, pulmonary embolus and congestive heart failure. Consult/Admit Bed Type: [place] [address] Critical Care Time: Critical care time spent by me, Dr. 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 The organ system at risk was pulmonary and I ordered supplemental oxygen and nebulizer treatments, multiple antibiotics, multiple diagnostics, IV fluids and admission to stabilize the patient and prevent worsening of the patient's condition. - Data Points Laboratory Results: Laboratory Results 07/12/18 17:26 07/12/18 17:50 07/12/18 07/12/18 07/12/18 17:50 17:50 17:50 WBC RBC Hgb Hct MCV MCH MCHC RDW Plt Count MPV Neut % (Auto) Lymph % (Auto) [place] % (Auto) Eos % (Auto) Baso % (Auto) Nucleat RBC Rel Count Absolute Neuts (auto) Absolute Lymphs (auto) Absolute Monos (auto) Absolute Eos (auto) Absolute Basos (auto) Absolute Nucleated RBC Immature Gran % Seg Neutrophils % Band Neutrophils % Lymphocytes % Monocytes % Eosinophils % Basophils % Metamyelocytes % Myelocytes % Promyelocytes % Blast Cells % Immature Gran # Absolute Seg Neuts Absolute Band Neuts Absolute Lymphocytes Absolute Monocytes Absolute Eosinophils Absolute Basophils Absolute Metamyelocyte Absolute Myelocytes Absolute Promyelocytes Absolute Plasma Cells Nucleated RBCs Absolute Blast Cells Plasma Cells % Platelet Estimate Oval Macrocytes PT 13.5 SEC SEC (12.0-15.0) INR 1.01 (0.83-1.16) APTT 34.0 SEC SEC (23.0-38.0) VBG Lactic Acid 1.5 mmol/L mmol/L (0.7-2.1) Sodium 135 mEq/L mEq/L (135-145) Potassium 4.3 mEq/L mEq/L (3.5-5.2) Chloride 108 mEq/L mEq/L (97-110) Carbon Dioxide 21 mEq/l L mEq/l (22-31) Anion Gap 6 mEq/L mEq/L (6-14) BUN 11 mg/dL mg/dL (7-23) Creatinine 0.9 mg/dL mg/dL (0.7-1.3) Estimated GFR > 60 Glucose 102 mg/dL H mg/dL (70-100) Calcium 8.9 mg/dL mg/dL (8.5-10.4) Total Bilirubin 0.7 mg/dL mg/dL (0.1-1.4) 07/12/18 17:26 WBC 6.85 10^3/uL 10^3/uL (3.80-9.50) RBC 5.47 10^6/uL 10^6/uL (4.40-6.38) Hgb 16.2 g/dL g/dL (13.7-17.5) Hct 48.0 % % (40.0-51.0) MCV 87.8 fL fL (81.5-99.8) MCH 29.6 pg pg (27.9-34.1) MCHC 33.8 g/dL g/dL (32.4-36.7) RDW 15.1 % % (11.5-15.2) Plt Count 283 10^3/uL 10^3/uL (150-400) MPV 9.6 fL fL (8.7-11.7) Neut % (Auto) Not Reported Lymph % (Auto) Not Reported [place] % (Auto) Not Reported Eos % (Auto) Not Reported Baso % (Auto) Not Reported Nucleat RBC Rel Count Not Reported Absolute Neuts (auto) Not Reported Absolute Lymphs (auto) Not Reported Absolute Monos (auto) Not Reported Absolute Eos (auto) Not Reported Absolute Basos (auto) Not Reported Absolute Nucleated RBC Not Reported Immature Gran % Not Reported Seg Neutrophils % 63.9 % % Band Neutrophils % 14.4 % % Lymphocytes % 14.5 % % Monocytes % 6.2 % % Eosinophils % 0.0 % % Basophils % 0.0 % % Metamyelocytes % 1.0 % % Myelocytes % 0.0 % % Promyelocytes % 0.0 % % Blast Cells % 0.0 % % Immature Gran # Not Reported Absolute Seg Neuts 4.38 10^3/uL 10^3/uL (1.70-6.50) Absolute Band Neuts 0.99 10^3/uL H 10^3/uL (0.00-0.70) Absolute Lymphocytes 0.99 10^3/uL L 10^3/uL (1.00-3.00) Absolute Monocytes 0.42 10^3/uL 10^3/uL (0.30-0.80) Absolute Eosinophils 0.00 10^3/uL L 10^3/uL (0.03-0.40) Absolute Basophils 0.00 10^3/uL L 10^3/uL (0.02-0.10) Absolute Metamyelocyte 0.07 10^3/mL H 10^3/mL (0.00-0.00) Absolute Myelocytes 0.00 10^3/mL 10^3/mL (0.00-0.00) Absolute Promyelocytes 0.00 10^3/uL 10^3/uL (0.00-0.00) Absolute Plasma Cells 0.00 10^3/uL 10^3/uL (0.00-0.00) Nucleated RBCs 0 /100 WBC /100 WBC (0-0) Absolute Blast Cells 0.00 10^3/uL 10^3/uL (0.00-0.00) Plasma Cells % 0.0 % % Platelet Estimate ADEQUATE (ADEQ) Oval Macrocytes 1+ H PT INR APTT VBG Lactic Acid Sodium Potassium Chloride Carbon Dioxide Anion Gap BUN Creatinine Estimated GFR Glucose Calcium Total Bilirubin Medications Given: Discontinued Medications Acetaminophen (Tylenol) 1,000 mg PO EDNOW ONE Stop: 07/12/18 17:18 Last Admin: 07/12/18 17:19 Dose: 1,000 mg Albuterol/Ipratropium (Duoneb) 3 ml IH EDNOW ONE Stop: 07/12/18 17:27 Last Admin: 12/28/18 17:30 Dose: 3 ml Sodium Chloride (Ns) 1,000 mls @ 0 mls/hr IV ONCE ONE; Wide Open PRN Reason: Protocol Stop: 07/12/18 17:27 Last Admin: 07/12/18 17:49 Dose: 1,000 mls Sodium Chloride (Ns) 1,000 mls @ 0 mls/hr IV EDNOW ONE; Wide Open PRN Reason: Protocol Stop: 07/12/18 17:27 Last Admin: 07/12/18 17:49 Dose: 1,000 mls Azithromycin 500 mg/ Dextrose 255 mls @ 255 mls/hr IV EDNOW ONE PRN Reason: Protocol Stop: 07/12/18 18:51 Last Admin: 07/12/18 19:30 Dose: 255 mls Ceftriaxone Sodium/Dextrose (Rocephin 1 Gm (Premix)) 50 mls @ 100 mls/hr IV EDNOW ONE PRN Reason: Protocol Stop: 07/12/18 18:21 Last Admin: 07/12/18 18:15 Dose: 50 mls Sodium Chloride (Ns) 2,400 mls @ 4,800 mls/hr 30 ml/kg infuse over 30 min ( 2400 ml) IV EDNOW ONE PRN Reason: Protocol Stop: 07/12/18 18:21 Last Admin: 07/12/18 18:27 Dose: 2,400 mls Vancomycin/Sodium Chloride (Vancomycin 1 Gm (Premix)) 250 mls @ 250 mls/hr IV EDNOW ONE PRN Reason: Protocol Stop: 07/12/18 18:51 Last Admin: 07/12/18 18:20 Dose: 250 mls Ibuprofen (Motrin) 600 mg PO EDNOW ONE Stop: 07/12/18 18:53 Last Admin: 07/12/18 19:07 Dose: 600 mg Morphine Sulfate (Morphine) 4 mg IVP EDNOW ONE Stop: 07/12/18 19:44 Last Admin: 07/12/18 19:49 Dose: 4 mg Ondansetron HCl (Zofran) 4 mg IVP EDNOW ONE Stop: 07/12/18 19:44 Last Admin: 07/12/18 19:48 Dose: 4 mg Departure - Departure Disposition: [facility] Clinical Impression: Influenza Pneumonia Qualifiers: Pneumonia type: due to unspecified organism Laterality: bilateral Lung location : unspecified part of lung Qualified Code(s): J18.9 - Pneumonia, unspecified organism Condition: Serious
[2018-07-12] MEDS ORDERED: VANCOMYCIN HCL/NORMAL SALINE 250 ML IV ONE (17:52)
[2018-07-12] MEDS ORDERED: NS 2,400 ML IV ONE (17:52)
[2018-07-12] MEDS ORDERED: AZITHROMYCIN IV 500 MG in D5W 250 ML IV ONE (17:52)
[2018-07-12 18:05] LABS: PLATELET COUNT 283 10^3/uL (150-400)
[2018-07-12 18:14] LABS: INR 1.01 (0.83-1.16); PROTIME(PATIENT) 13.5 SEC (12.0-15.0)
[2018-07-12] MEDS ORDERED: IBUPROFEN 600 MG TAB PO ONE (18:52)
[2018-07-12] MEDS ORDERED: ONDANSETRON 4 MG/2 ML VIAL IVP ONE (19:43)
[2018-07-12] MEDS ORDERED: IBUPROFEN 200 MG TAB PO PRN (20:12)
[2018-07-12] MEDS ORDERED: ONDANSETRON 4 MG/2 ML VIAL IVP PRN (20:12)
[2018-07-12] MEDS ORDERED: ONDANSETRON DISINTEGRATING 4 MG TAB PO PRN (20:12)
--- NOTE | 2018-07-12 20:16 | PDGENHP ---
History and Physical - Chief Complaint fevers - History of Present Illness 38yo M who was diagnosed with influenza A yesterday returns to the ED due to persistent fevers and worsening shortness of breath. Symptoms started 3 days ago , had to leave work early. Has been coughing up dark brown phlegm. Some pain with taking deep breaths. Both his children have been sick. Had fever to 103.5 at home today which prompted him to come back where CXR showed bilateral multifocal infiltrates. He was given ceftriaxone, azithromycin, and vancomycin for potential post-influenza bacterial pneumonia. Case discussed with ED physician Deshawn Ramos. History Information - Allergies/Home Medication List Allergies/Adverse Reactions: No Known Allergies Allergy (Verified 07/11/18 06:44) Home Medications: Gabapentin [Neurontin 300 MG (*)] 300 mg PO TID 07/12/18 [Last Taken 07/12/18] I have personally reviewed and updated: family history, medical history, social history, surgical history - Past Medical History Additional medical history: sciatica - Surgical History Reports: no pertinent surgical hx - Family History Positive for: non-pertinent - Social History Smoking Status: Former smoker Alcohol Use: None Drug Use: Other (former non-IV drug use) Additional social history: Lives with parents and 2 children. 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 Review of Systems Review of Systems: ROS: 10pt was reviewed & negative except for what was stated in HPI & below Physical Exam Physical Exam: Temp Pulse Resp BP Pulse Ox 37.1 C 121 H 18 111/62 95 07/12/18 19:32 07/12/18 19:32 07/12/18 19:32 07/12/18 19:32 07/12/18 19:32 O2 (L/minute) 3 Constitutional: appears nourished, uncomfortable Eyes: PERRL, anicteric sclera, EOMI Ears, Nose, Mouth, Throat: no oral mucosal ulcers, other (erythematous posterior oropharynx) Cardiovascular: no murmur, rub, or gallop, tachycardia, No edema Respiratory: no respiratory distress, rhonchi, No expiratory wheeze Gastrointestinal: normoactive bowel sounds, soft, non-tender abdomen, no palpable masses Genitourinary: no bladder fullness, no bladder tenderness Skin: warm, normal color, no rashes or abrasions, no fluctuance, no induration, No mottled Musculoskeletal: full muscle strength, no muscle tenderness, normal joint ROM, no joint effusions Neurologic: AAOx3 Psychiatric: interacting appropriately, not anxious, not encephalopathic, thought process linear Lab Data & Imaging Review 07/12/18 17:26 07/12/18 17:50 WBC 6.85 10^3/uL (3.80-9.50) 07/12/18 17:26 RBC 5.47 10^6/uL (4.40-6.38) 07/12/18 17:26 Hgb 16.2 g/dL (13.7-17.5) 07/12/18 17:26 Hct 48.0 % (40.0-51.0) 07/12/18 17:26 MCV 87.8 fL (81.5-99.8) 07/12/18 17:26 MCH 29.6 pg (27.9-34.1) 07/12/18 17:26 MCHC 33.8 g/dL (32.4-36.7) 07/12/18 17:26 RDW 15.1 % (11.5-15.2) 07/12/18 17:26 Plt Count 283 10^3/uL (150-400) 07/12/18 17:26 MPV 9.6 fL (8.7-11.7) 07/12/18 17:26 Neut % (Auto) Not Reported 07/12/18 17:26 Lymph % (Auto) Not Reported 07/12/18 17:26 [place] % (Auto) Not Reported 07/12/18 17:26 Eos % (Auto) Not Reported 07/12/18 17:26 Baso % (Auto) Not Reported 07/12/18 17:26 Nucleat RBC Rel Count Not Reported 07/12/18 17:26 Absolute Neuts (auto) Not Reported 07/12/18 17:26 Absolute Lymphs (auto) Not Reported 07/12/18 17:26 Absolute Monos (auto) Not Reported 07/12/18 17:26 Absolute Eos (auto) Not Reported 07/12/18 17:26 Absolute Basos (auto) Not Reported 07/12/18 17:26 Absolute Nucleated RBC Not Reported 07/12/18 17:26 Immature Gran % Not Reported 07/12/18 17:26 Seg Neutrophils % 63.9 % 07/12/18 17:26 Band Neutrophils % 14.4 % 07/12/18 17:26 Lymphocytes % 14.5 % 07/12/18 17:26 Monocytes % 6.2 % 07/12/18 17:26 Eosinophils % 0.0 % 07/12/18 17:26 Basophils % 0.0 % 07/12/18 17:26 Metamyelocytes % 1.0 % 07/12/18 17:26 Myelocytes % 0.0 % 07/12/18 17:26 Promyelocytes % 0.0 % 07/12/18 17:26 Blast Cells % 0.0 % 07/12/18 17:26 Immature Gran # Not Reported 07/12/18 17:26 Absolute Seg Neuts 4.38 10^3/uL (1.70-6.50) 07/12/18 17:26 Absolute Band Neuts 0.99 10^3/uL (0.00-0.70) H 07/12/18 17:26 Absolute Lymphocytes 0.99 10^3/uL (1.00-3.00) L 07/12/18 17:26 Absolute Monocytes 0.42 10^3/uL (0.30-0.80) 07/12/18 17:26 Absolute Eosinophils 0.00 10^3/uL (0.03-0.40) L 07/12/18 17:26 Absolute Basophils 0.00 10^3/uL (0.02-0.10) L 07/12/18 17:26 Absolute Metamyelocyte 0.07 10^3/mL (0.00-0.00) H 07/12/18 17:26 Absolute Myelocytes 0.00 10^3/mL (0.00-0.00) 07/12/18 17:26 Absolute Promyelocytes 0.00 10^3/uL (0.00-0.00) 07/12/18 17:26 Absolute Plasma Cells 0.00 10^3/uL (0.00-0.00) 07/12/18 17:26 Nucleated RBCs 0 /100 WBC (0-0) 07/12/18 17:26 Absolute Blast Cells 0.00 10^3/uL (0.00-0.00) 07/12/18 17:26 Plasma Cells % 0.0 % 07/12/18 17:26 Platelet Estimate ADEQUATE (ADEQ) 07/12/18 17:26 Oval Macrocytes 1+ H 07/12/18 17:26 PT 13.5 SEC (12.0-15.0) 07/12/18 17:50 INR 1.01 (0.83-1.16) 07/12/18 17:50 APTT 34.0 SEC (23.0-38.0) 07/12/18 17:50 VBG Lactic Acid 1.5 mmol/L (0.7-2.1) 07/12/18 17:50 Sodium 135 mEq/L (135-145) 07/12/18 17:50 Potassium 4.3 mEq/L (3.5-5.2) 07/12/18 17:50 Chloride 108 mEq/L (97-110) 07/12/18 17:50 Carbon Dioxide 21 mEq/l (22-31) L 07/12/18 17:50 Anion Gap 6 mEq/L (6-14) 07/12/18 17:50 BUN 11 mg/dL (7-23) 07/12/18 17:50 Creatinine 0.9 mg/dL (0.7-1.3) 07/12/18 17:50 Estimated GFR > 60 07/12/18 17:50 Glucose 102 mg/dL (70-100) H 07/12/18 17:50 Calcium 8.9 mg/dL (8.5-10.4) 07/12/18 17:50 Total Bilirubin 0.7 mg/dL (0.1-1.4) 07/12/18 17:50 Visualized and Interpreted Chest x-ray results: Yes Visualized and Interpreted imaging results: Yes Interpretation: CXR: bilateral multifocal airspace opacities, no effusion Assessment & Plan Assessment: 38yo M who was diagnosed with influenza A yesterday returns to the ED due to persistent fevers and worsening shortness of breath found to have multifocal pneumonia. Plan: 1. Sepsis: Fever, tachycardia with pulmonary source. BP stable, lactate ok. - Antibiotics as below, follow blood cultures, maintenance IVF 2. Multifocal pneumonia: Bilateral. Either sequela of influenza vs superimposed bacterial process. - Check procalcitonin - Ceftriaxone and azithromycin. If not improving, consider MRSA coverage 3. Influenza A: Diagnosed yesterday - Continue tamiflu, supportive/symptomatic care 4. Acute hypoxemic respiratory insufficiency: Requiring 2-3L. Due to pneumonia. - Wean as able 5. Sciatica: Continue home gabapentin. VTE ppx: LMWH Code: full Diet: regular Dispo: Admit under observation
[2018-07-12] MEDS: GABAPENTIN 300 MG CAP PO SCH (20:56)
[2018-07-12] MEDS: NS 1,000 ML IV SCH (20:56)
[2018-07-12] MEDS: OSELTAMIVIR PHOSPHATE 75 MG CAP PO SCH (20:56)
[2018-07-12] MEDS: ACETAMINOPHEN 325 MG TAB PO PRN (23:53)
[2018-07-13] MEDS ORDERED: IOPAMIDOL (ISOVUE-300) 100 ML BTL ONE ×2 (00:13→00:56)
[2018-07-13] MEDS: NS 1,000 ML IV SCH (01:15)
[2018-07-13] MEDS: NOREPINEPHRINE BITARTRATE 4 MG in NS 500 ML IV SCH ×4 (01:25→11:22)
--- NOTE | 2018-07-13 01:47 | HOSPPROG ---
Hospitalist Progress Note Assessment/Plan: Hospitalist night float note Patient with increasing heart rate to the 130s and declining blood pressures over the course of the evening despite IV fluid bolus. SBP in the 70s. Patient subsequently complained of severe crushing chest pain with radiation to his back. EKG was obtained showing sinus tach in the 130s. No acute ST changes. Patient sent for CT with contrast that is negative for any central PEs but is consistent with a pneumonia. Patient transferred to the ICU. Dr. Miranda consulted for central line access. Discussed risks benefits with the patient and he consented, signed in chart. Patient will be started on Levophed. Objective: Vital Signs Temp Pulse Resp BP Pulse Ox 37.6 C 125 H 25 H 87/50 L 96 07/12/18 23:39 07/12/18 23:39 07/12/18 23:39 07/12/18 23:39 07/12/18 23:39 07/11/18 07/12/18 07/13/18 05:59 05:59 05:59 Intake Total 2700 Output Total 625 Balance 2075 PT 13.5 SEC (12.0-15.0) 07/12/18 17:50 INR 1.01 (0.83-1.16) 07/12/18 17:50 ICD10 Worksheet Patient Problems: Problems Problem Status Onset Influenza Acute Pneumonia Acute
[2018-07-13] MEDS ORDERED: HYDROCORTISONE 100 MG/2 ML VIAL IVP SCH ×2 (02:15→14:30)
[2018-07-13] MEDS: VASOPRESSIN 25 UNIT in NS 250 ML IV SCH ×3 (02:22→21:25)
--- NOTE | 2018-07-13 05:06 | GOP ---
DATE OF OPERATION: 07/13/2018 SURGEON: Mendoza Miranda MD ANESTHESIA: Local. PREOPERATIVE DIAGNOSIS: Sepsis. POSTOPERATIVE DIAGNOSIS: Sepsis. PROCEDURE PERFORMED: Left subclavian vein triple-lumen catheter placement. DESCRIPTION OF PROCEDURE: Local anesthesia was infiltrated. The left subclavian was directly punctured and a guidewire passed into the atrium. No ectopy was noted upon the personnel monitor. The vein was dilated, and the catheter passed to 20 cm without resistance. There was good venous blood return out of all 3 lumens. These were flushed with saline solution. The catheter was secured to the chest with a silk suture. Sterile dressing was applied. A portable chest x-ray is pending upon completion. /[id number]/MODL MTDD
[2018-07-13 05:38] LABS: INR 1.38 (0.83-1.16); PROTIME(PATIENT) 17.1 SEC (12.0-15.0)
[2018-07-13] MEDS: oxyCODONE IR 5 MG TAB PO PRN (07:22)
[2018-07-13] MEDS ORDERED: PHENYLEPHRINE HCL 50 MG in D5W 250 ML IV SCH (07:30)
[2018-07-13] MEDS ORDERED: PIPERACILLIN/TAZO 3.375 GM/DEX 50 ML IV SCH (07:30)
[2018-07-13] MEDS ORDERED: VANCOMYCIN 1.25 GM in NS 250 ML IV SCH (08:00)
--- NOTE | 2018-07-13 08:37 | GCON ---
DATE OF CONSULTATION: 07/13/2018 REASON FOR ADMISSION: Sepsis. HISTORY OF PRESENT ILLNESS: 38-year-old healthy male admitted with sepsis syndrome secondary to severe influenza. He has developed progressive hypotension, tachycardia, and shortness of breath throughout his course. Surgery has been requested for central access placement. PAST MEDICAL HISTORY: Neuropathy. PAST SURGICAL HISTORY: Tonsillectomy. HOME MEDICATIONS: Neurontin, Tamiflu. SOCIAL HISTORY: Noncontributory. PHYSICAL EXAM: GENERAL: Patient is alert, appropriate, uncomfortable. Mildly labored breathing. HEART: Regular. LUNGS: Coarse bilaterally, diminished throughout. ABDOMEN: Soft, nontender. EXTREMITIES: Unremarkable. IMPRESSION: Bilateral pneumonia/sepsis syndrome. PLAN: Central line placement for further venous access and treatment. /[id number]/MODL MTDD
[2018-07-13] MEDS: ASCORBIC ACID 1,500 MG in D5W 100 ML IV SCH ×3 (08:39→21:25)
[2018-07-13] MEDS: THIAMINE HCL 200 MG in NS 100 ML IV SCH ×2 (08:55→21:25)
[2018-07-13] MEDS: CLOTRIMAZOLE 1% 15 GM CRTUBE TP SCH ×2 (08:55→21:26)
[2018-07-13] MEDS ORDERED: AZITHROMYCIN IV 500 MG in NS 250 ML IV SCH (09:00)
[2018-07-13] MEDS: LINEZOLID 600 MG/DEXTROSE 300 ML IV SCH ×2 (09:39→21:25)
--- NOTE | 2018-07-13 09:47 | GCON ---
INFECTIOUS DISEASE CONSULT DATE OF CONSULTATION: 07/13/2018 PERSON REQUESTING CONSULT: Trung De La Rosa MD. REASON FOR CONSULT: To assist in the management of this 38-year-old male with influenza A, sepsis, and respiratory failure. HISTORY OF PRESENT ILLNESS: The patient is a 38-year-old male whose previous medical history is notable for the followin. Substance use disorder: The patient states that he has a history of smoking methamphetamines as well as snorting them. He states that he recently got out of custodial, where he was for 5 months for assault. He has been clean from all substances for 7 months. He states he has never used intravenous substances , but used to abuse steroids, injecting them into his buttocks in the distant past as well. The patient presently has a right ankle bracelet in place, which he states should be removed next week when he will be off parole. 2. History of MRSA skin and soft tissue infection: The patient states he was living in [place], [place], and in 2011, developed a subcutaneous abscess in his left anterior chest that was drained and positive for MRSA. 3. History of tobacco use disorder: Patient smoked for 10 years and quit in 2000. 4. History of sciatica. 5. Influenza B, August 2017. Regarding his present issues, the patient presented originally to [facility] on July 11, complaining of fever and myalgias. He had a temperature of 37.5. He was diagnosed with influenza A and started on Tamiflu. A chest x-ray, at that time, showed no obvious infiltrate. The patient continued to do unwell at home with fevers as high as almost 104 degrees. He re -presented to [facility] Emergency Department on July 12, in the evening. Chest x-ray showed multifocal pneumonia, which was corroborated by a chest CT. He had a temperature to 37.9, with an oxygen saturation of 97%. He was given ceftriaxone 1 g, 1 g of vancomycin, azithromycin 500 mg, and admitted to the floor. Unfortunately, the patient decompensated early in the morning with decreasing blood pressure and increasing heart rate and was brought to the intensive care unit. A left subclavian was placed by Dr. Miranda, and pressors were started. The patient is presently on a maximum amount of vasopressin and Levophed. I am now asked to assist in his management. Antibiotics were broadened to include vancomycin and Zosyn as well as azithromycin. Speaking with the patient today, it is remarkable that he is not tachypneic at all. He states that he is coughing and bringing up bloody sputum. He does have a mild headache. Mild sore throat. It is uncomfortable for him to take a deep breath. He denies any visual disturbance, confusion, rash, nausea, vomiting, or other. REVIEW OF SYSTEMS: Aside from what is listed above, ten systems are reviewed and all are negative. PAST MEDICAL HISTORY: As outlined above. The patient was recently seen in [facility] in early June of this year for a left pinky toe cellulitis, treated with 7 days of Keflex and Bactrim. ALLERGIES: No known drug allergies. SOCIAL HISTORY: The patient works at [employer], changing [employer]. History of tobacco use disorder as outlined above, none since 2000. History of substance use disorder as outlined above, none x7 months. Recently spent 5 months at [facility] as outlined above, got out on May 14. Has also spent 5 years in alf from [id number]. Of note, patient was tested for HIV while in custodial recently and was negative. He denies alcohol at all. He does have a hot tub at home, but it is broken. He does spend time in the [facility] hot tub frequently. No recent travel within or outside the [place]. He did not get the flu vaccine this year, nor did his children. Of note, the patient's last year related to complications from influenza. He states she was an alcoholic. He has a dog, who is healthy. Since getting out of custodial, the patient has had sex twice with the same woman without a condom, and tells me "I don't trust her. " He presently lives in [place] with his parents and children. FAMILY HISTORY: The patient is adopted and does not know anything about his parents' health. PHYSICAL EXAM: VITALS: T current is 37, T-max is 37.8, heart rate 128, blood pressure 96/69, 100 percent on 4 L. GENERAL: Well-nourished, well-developed young man, lying in bed, does not appear toxic. HEENT: Atraumatic, normocephalic. Pupils equal, round, reactive to light. Extraocular movements are intact. No conjunctival injection. No icterus, petechiae. Mucous membranes moist. No sinus process tenderness or discharge from his nares. Dentition in fair repair. No oral lesions or thrush. No exudate. Trachea is midline. No cervical or supraclavicular lymphadenopathy. CARDIOVASCULAR: Tachycardic, S1 and S2. No rubs, gallops, or murmurs audible. LUNGS: Poor inspiratory effort. Crackles heard in the lung bases that are fine, some coarse breath sounds upper airway. No increased respiratory effort. ABDOMEN: Soft. No organomegaly, tenderness to palpation. : Circumcised phallus. No lesions noted. EXTREMITIES: No clubbing, cyanosis, or edema. His left pinky toe is notable for some tinea pedis between the web spaces of his 4th and 5th toes. No obvious evidence of cellulitis. SKIN: Also notable for some tattoos on his back, no evidence of skin and soft tissue infection. NEUROLOGIC: He is alert and orient x3. LABORATORY DATA: Blood cultures x2 are pending. Influenza PCR positive for flu A. White blood cell count of 9.2, hematocrit 39.9, platelet count of 271. CBC last night shows 14% bands. Venous lactate of 3.1. Bicarbonate is 21, BUN and creatinine 11/0.9. Liver function tests are normal. Albumin of 2.5. Procalcitonin 1.79. RADIOGRAPHIC DATA: As outlined above. IMPRESSION: 38-year-old otherwise healthy male with distant history of methicillin resistant staphylococcus aureus skin and soft tissue infection and recent 5- month incarceration, who now presents with severe influenza A with sepsis and multilobar pneumonia. Incredibly, the patient looks markedly better than one would expect with his present physiologic and laboratory values. PLAN: 1. Discontinue vancomycin, as the patient will likely hypermetabolize this medication given his youth; obtaining proper levels will be difficult. 2. Start linezolid 600 mg IV q.12 hours. 3. Discontinue Zosyn, as a pseudomonal pneumonia seems less likely, and there is no history of aspiration. 4. Start Ceftriaxone 2 g IV daily. 5. Discontinue azithromycin and start levofloxacin 750 mg IV daily given recent hot tub exposure and severity of illness. 6. Will obtain sputum Gram stain and culture and urine Legionella antigen. 7. For completeness, will also order HIV antibody test, although the patient reports this was negative in custodial. We will also check RPR, and urine GC, chlamydia, and hepatitis C antibody with the history of previous intranasal methamphetamine use. 8. Continue Tamiflu 75 mg twice daily. Droplet precautions in place. Over 70 minutes was spent with this patient today. Thank you very much for consulting Infectious Diseases. We will continue to follow this patient with you. /[id number]/MODL MTDD
--- NOTE | 2018-07-13 10:01 | PDCONSULT ---
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 severe, requiring 2 vasopressors and steroids # influenza pneumonia. Imaging concerning for staph. Pt has h/o MRSA infection. # acute hypoxemic resp failure. despite severe illness and critical condition, patient is currently compensated on supplemental oxygen and does not need emergent intubation # sinus tachycardia, compensatory # lactic acidosis, has not cleared despite aggressive resuscitation. Soft abd, no e/o extrapulmonary source # illicit drug use # recent incarceration PLAN # abx per ID # TTE to r/o vegitations and RV failure # stop IVF as patient has received more than enough and increasing amounts may increase respiratory failure and kidney injury # vasopressin norepinephrine # will add sultana next # hydrocortisone 50 q.6h fludrocortisone 0.1 mg daily # vitamin-C and thiamine # trend lactates # closely monitor respiratory status. High likelihood of needing intubation but will hold off at this point # Feeding - NPO # Analgesia APAP, oxy # Sedation none # Thromboprophylaxis - SQ hep # Head of bed elevated # Ulcer prophylaxis - NA # Glucose SSI # Skin no skin breakdown # Delirium - delirium precautions Patient is critical ill due to life threatening organ dysfunction and is at high risk for decompensation and . Total critical care time, excluding procedures: 128 min which was spent evaluating interviewing patient at bedside, reviewing patient's chart as well as imaging, discussing with subspecialists and re-evaluating patient and adjusting vaso active medications ABX EVENTS 05/11/18 intubation, bronchoscopy CX Data IMAGING I personally reviewed interpreted patient's radiographic images well as formal radiology reads. 07/13/2018 CT chest dense patchy multifocal infiltrates 07/13/2018 TTE mild to moderately reduced LVEF CONSULT I was was asked by Dr De La Rosa of Hospital Medicine to evaluate this patient for septic shock and severe influenza related pneumonia Chief complaint Shortness of breath and fatigue HPI Patient is a very pleasant 38 year male who initially presented [facility] Emergency Department on 07/11/2018 complaining fevers myalgias. The time he had a temperature of 37.5 degrees he was diagnosed with influenza a and started on Tamiflu and sent home. However home he continued to feel poorly and his condition progressed to a temperature home 140 degrees C. He re-presented summer 03/04/2018 with worsening symptoms and chest x-ray with multifocal pneumonia and a CT chest with dense multifocal infiltrates. He was initiated on antibiotics and admitted to the floor. On the floor he for the decompensated with increasing tachypnea heart rate and decreasing blood pressure despite had aggressive IV fluid resuscitation. A left subclavian central line was placed by Dr. Miranda and vasopressors were started. When I initially met patient this morning he was in septic shock despite moderate dose vasopressors with inadequate maps. We rapidly uptitrated to max doses of vasopressin norepinephrine, added hydrocortisone fludrocortisone, vitamin-C and thiamine. We stopped IVF given adequate resuscitation marginal respiratory status. Allergies No known drug allergies Past medical history Polysubstance abuse including inhaled methamphetamines, history of MRSA skin infections, tobacco use disorder, peripheral neuropathy, sciatica, influenza Social history Has been incarcerated multiple times both for drugs an assault. History of tobacco use. Ex-girlfriend of influenza in the setting of methamphetamine and alcohol use. Lives up [facility] with his father and 2 children Family history No blood related history of severe influenza infection Review of systems A comprehensive 10 point review of systems was obtained is negative except as per HPI Physical exam Vitals temperature 39.2 degrees, heart rate 145, blood pressure 80/40, respirations 30 98% on 6 L GEN: Moderate to severe distress lying in bed NEURO: A&Ox3, CN 2-12 GI HEENT: PERRL, EOMI, MMM, OP clear NECK: supple, trachea midline CHEST normal shape, no pes excavatum CVS: Tachy no m/r/g PULM: Coarse breath sounds bilaterally, tachypnea no accessory muscle use ABD: soft, NT, ND, NABS EXT: no swelling, no cyanosis, full ROM SKIN: warm, dry, intact, no rash PSYCH CAM negative, appropriate affect Labs reviewed
[2018-07-13] MEDS: ENOXAPARIN 40 MG/0.4 ML SYR SC SCH (10:44)
[2018-07-13] MEDS: GABAPENTIN 300 MG CAP PO SCH ×3 (10:45→21:25)
[2018-07-13] MEDS: ACETAMINOPHEN 325 MG TAB PO PRN ×2 (10:45→21:39)
[2018-07-13] MEDS: OSELTAMIVIR PHOSPHATE 75 MG CAP PO SCH ×2 (10:45→21:26)
[2018-07-13] MEDS: FLUDROCORTISONE ACETATE 0.1 MG TAB PO SCH (10:49)
--- NOTE | 2018-07-13 10:49 | ECHO ---
[email or web address] [address] [address] Main: [phone] Fax: Transthoracic Echocardiogram Name: YANG GOMEZ MR#: [id number] Study Date: 07/13/2018 Study Time: 09:21 AM Date of : 1980 Age: 38 year(s) Height: 182.9 cm (72 in.) Weight: 81.19 kg (179 lb.) BSA: 2.03 m2 Gender: Male Examination: Echo Indication: Hypotension, Cardiogenic shock Image Quality: Contrast: Requested by: Hillary Segal BP: 114 mmHg/76 mmHg Heart Rate: Rhythm: Tachycardia Indication: Hypotension, Cardiogenic shock Procedure Staff Stucco Plasterer: Liam Forbes RDCS Reading Physician: Katt Pederson MD Requesting Provider: Conclusions: Normal size left ventricle. No LV hypertrophy. Mildly reduced systolic LV function. The ejection fraction is visually estimated to be 45 %. No regional wall motion abnormality. Mildly dilated right ventricle. Mildly reduced RV function. Mild mitral valve regurgitation is present. Trivial tricuspid valve regurgitation. The pulmonary artery pressure is normal. No pericardial effusion. Tachycardia at 118 bpm. There is no previous exam. . Measurements: Chambers Valvular Assessment AV/MV Valvular Assessment TV/PV Normal Normal Normal Name Value Range Name Value Range Name Value Range Ao Denise (MM): 2.6 cm (2.2 cm-3.7 MV E Vmax: 0.63 m/s ( - ) TR Vmax: 2.74 mm/s ( - ) cm) MV A Vmax: 0.71 m/s ( - ) TR PGmax: 30 mmHg ( - ) IVSd (2D): 0.9 cm (0.6 cm-1.1 MV E/A: 0.89 ( - ) syst. PAP: 35 mmHg ( - ) cm) PV Vmax: 0.83 m/s (0.6 m/s-0.9 LVDd (2D): 4.7 cm (4.2 cm-5.9 m/s) cm) PV PGmax: 3 mmHg ( - ) LVDs (2D): 3.5 cm (2.1 cm-4 cm) LVPWd (2D): 0.9 cm (0.6 cm-1 cm) LVEF (MM): 54 (>=55 %) Visual EF: 45 % RVDd(2D): 3.8 cm (1.9 cm-3.8 cmmm) Patient: YANG GOMEZ Study Date: 07/13/2018 Page 1 of 2 09:21 AM Continued Measurements: Chambers Valvular Assessment AV/MV Valvular Assessment TV/PV Name Value Name Value Name Value LADs Lon.0 cm MV E' Septal: 0.17 m/s CVP (est.): 5 mmHg LA Area: 18.1 cm2 MV E/E' Septal: 3.70 LA Volume: 55 ml MV E/E' Lateral: 4.60 LA Volume Index: 27.1 ml/m2 TAPSE: 2.3 cm Findings: Left Ventricle: Normal size left ventricle. No LV hypertrophy. Mildly reduced systolic LV function. The ejection fraction is visually estimated to be 45 %. No regional wall motion abnormality. Right Ventricle: Mildly dilated right ventricle. Mildly reduced RV function. Left Atrium: The left atrium is normal in size. Right Atrium: The right atrium is borderline dilated. Mitral Valve: The mitral valve is normal in appearance. No mitral stenosis is present. Mild mitral valve regurgitation is present. Aortic Valve: The aortic valve is normal in appearance. There is no significant aortic valve regurgitation. Tricuspid Valve: The tricuspid valve appears normal. Trivial tricuspid valve regurgitation. The pulmonary artery pressure is normal. Pulmonic Valve: The pulmonic valve is normal in appearance and function. Aorta: The aorta is normal. Pericardium: No pericardial effusion. Exam Comments: Tachycardia at 118 bpm. There is no previous exam. . (No Signature Object) Patient: YANG GOMEZ Study Date: 07/13/2018 Page 2 of 2 09:21 AM [id number]
--- NOTE | 2018-07-13 11:45 | PDMN ---
Medical Necessity Medical necessity: [facility] M160 Sepsis: 38 yo presents w/ +Influenza A, stable sepsis w/ pneumonia, initially OBS but developed severe septic shock overnight w / tachycardia 130s, hypotension SBP 70s, cont RR in 30s, severe crushing CP, despite aggressive sepsis protocol/IV fluids, emergent transfer to ICU with central line placement, now on 2+vasopressors and steroids. Imaging concerning for influenza pneumonia w/ staph. Pt is critically ill due to life threatening organ dysfunction and is at high risk for decompensation and . Change to IP status 07/13/18@1041 per MD order.
[2018-07-13] MEDS: HYDROCORTISONE 100 MG/2 ML VIAL IVP SCH ×2 (12:08→17:20)
[2018-07-13] MEDS: KETOROLAC 30 MG/1 ML SDV IVP PRN (12:20)
--- NOTE | 2018-07-13 20:19 | HOSPPROG ---
Hospitalist Progress Note Assessment/Plan: #Septic shock: Influenza, multilobar PNA (h/o MRSA) -Linezolid, CTX, Tamiflu -echo to eval for endocarditis. -pending: blood cultures, legionella, HIV, HCV -on pressors, Vit C, hydrocortisone/florinef #AHRF: due to above. Not requiring intubation now #Lactic acidosis: hydrate #Substance abuse: snort/smokes meth. Counseled on cessation #Tobacco dependence: counseled on cessation #Tachycardia: due to acute illness #Sciatica: gabapentin #Social: recently jailed #DVT ppx: Lovenox Inpatient admission: critically-ill requiring pressors, IV abx Critical care time spent: >35 min evaluating pt, labs and d/w Dr. Gutierrez Subjective: "feel terrible" Productive brown/red sputum Objective: Vital Signs Temp Pulse Resp BP Pulse Ox 36.8 C 95 30 H 107/71 96 07/13/18 15:49 07/13/18 19:00 07/13/18 19:00 07/13/18 19:00 07/13/18 19:00 07/12/18 07/13/18 07/14/18 05:59 05:59 05:59 Intake Total 3971 Output Total 1140 Balance 2831 PT 17.1 SEC (12.0-15.0) H 07/13/18 05:15 INR 1.38 (0.83-1.16) H 07/13/18 05:15 - Physical Exam Constitutional: uncomfortable Ears, Nose, Mouth, Throat: dry mucous membranes Cardiovascular: tachycardia Respiratory: rhonchi Gastrointestinal: normoactive bowel sounds Genitourinary: no bladder fullness Skin: warm Musculoskeletal: other (left subclavian catheter in place) Neurologic: AAOx3, CN II-XII Intact Psychiatric: not encephalopathic ICD10 Worksheet Patient Problems: Problems Problem Status Onset Influenza Acute Pneumonia Acute
[2018-07-14] MEDS: VASOPRESSIN 25 UNIT in NS 250 ML IV SCH (00:17)
[2018-07-14] MEDS: HYDROCORTISONE 100 MG/2 ML VIAL IVP SCH ×4 (00:21→17:42)
[2018-07-14] MEDS: KETOROLAC 30 MG/1 ML SDV IVP PRN ×4 (00:26→23:49)
[2018-07-14] MEDS: ASCORBIC ACID 1,500 MG in D5W 100 ML IV SCH ×4 (02:44→21:13)
[2018-07-14] MEDS: NOREPINEPHRINE BITARTRATE 4 MG in NS 500 ML IV SCH (03:22)
[2018-07-14 05:06] LABS: PLATELET COUNT 230 10^3/uL (150-400)
--- NOTE | 2018-07-14 08:31 | PDINTPN ---
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 severe, required "max" doses of NE and vaso plus steroids. Improving but still on vasopressin # influenza pneumonia. Imaging concerning for staph aureus. Pt has h/o MRSA infection. # acute hypoxemic resp failure. despite severe illness and critical condition, patient is currently compensated on supplemental oxygen and does not need emergent intubation # sinus tachycardia, compensatory. improving # septic cardiomyopathy. Based on low normal S CV O2 sat as well as TTE with relatively depressed LV function. This should improve as critical illness resolves # lactic acidosis. resolved # illicit drug use # recent incarceration PLAN # linezolid, CTX and Levaquin per ID. Anticipate narrowing in coming days # Initiate midodrine 20 mg p.o. Q 8 hr and titrate as necessary to help shorten the duration of IV vasopressor use in the recovery phase of septic shock. CHEST , Volume 149 , Issue 6 , 1380 - 1383. CHEST , Volume 149 , Issue 6 , 1582 - 1583 # wean vasopressin as able # anticipate diuresing after shock resolves given relative cardiomyopathy and positive fluid balance # hydrocortisone 50 mg Q6h and fludrocortisone 0.05 mg Qday N Engl J Med 2018; [phone] # vitamin-C and thiamine given severity of illness. Can stop after 4-5 days. # supplemental oxygen as needed. Avoid hyperoxia # follow-up culture data # Feeding - regular diet # Analgesia APAP, oxy # Sedation none # Thromboprophylaxis - SQ hep # Head of bed elevated # Ulcer prophylaxis - NA # Glucose SSI # Skin no skin breakdown # Delirium - delirium precautions Patient is critical ill due to life threatening organ dysfunction and is at high risk for decompensation and . Total critical care time, excluding procedures: 65 min which was spent evaluating interviewing patient at bedside, reviewing patient's chart as well as imaging, discussing with subspecialists and re-evaluating patient and adjusting vaso active medications EVENTS 07/12/2018 admission, left subclavian central line CX Data Viral PCR positive for pneumonia Sputum cultures mixed respiratory denae IMAGING I personally reviewed interpreted patient's radiographic images well as formal radiology reads. 07/13/2018 CT chest dense patchy multifocal infiltrates 07/13/2018 TTE mild to moderately reduced LVEF 07/14/2018 chest x-ray interval worsening of bilateral opacities 07/14/18 13:36 Objective: Vital Signs Temp Pulse Resp BP Pulse Ox 36.9 C 64 29 H 119/75 100 07/14/18 02:00 07/14/18 07:00 07/14/18 07:00 07/14/18 07:00 07/14/18 07:00 Laboratory Results 07/14/18 04:45 07/14/18 04:45 07/13/18 07/14/18 07/15/18 05:59 05:59 05:59 Intake Total 3971 1300 Output Total 1140 1200 Balance 2831 100 PT 17.1 SEC (12.0-15.0) H 07/13/18 05:15 INR 1.38 (0.83-1.16) H 07/13/18 05:15 Physical Exam - Physical Exam General Appearance: no apparent distress, mild distress EENT: normal ENT inspection, pharynx normal Neck: non-tender, full range of motion, supple Respiratory: other (Mild kidney, increased from prior. Coarse breath sounds bilaterally) Cardiac/Chest: No edema, No gallop Skin: normal color, warm/dry, No cyanosis Neuro/Psych: no motor/sensory deficits, alert, normal mood/affect, oriented x 3 ICD10 Worksheet Patient Problems: Problems Problem Status Onset Influenza Acute Pneumonia Acute
--- NOTE | 2018-07-14 08:53 | PCMIDPN ---
Assessment/Plan: 1. Sepsis with multi lobar pneumonia in patient with influenza a and history of MRSA: Greatly improved today. Still on 2 pressors, but they are being weaned off. Oxygenation is stable. Patient will try and give us a better sputum specimen today. For now, given that he just turned the corner, continue antibiotics as is in the form of linezolid, ceftriaxone, and Levaquin. (will change Levaquin and linezolid to p.o.) Await urine Legionella antigen; if negative, will discontinue levofloxacin. Will also resubmit a deeper sputum specimen to ensure he does not have MRSA pneumonia so linezolid can be discontinued as well in short order. Continue Tamiflu for another 3 days. 2. History of substance abuse: STI and HIV testing pending. 07/14/18 08:54 Subjective: Turning the corner. Still on 2 pressors, but they are being weaned off. Still coughing up lina sputum. No diarrhea. Objective: Linezolid 600 mg IV q.12 hours day 2 Levofloxacin 750 mg IV daily day 2 Ceftriaxone 2 g IV daily day 2 Tamiflu 75 mg p. O. Twice daily day 2 97.7 equals T-max, 100% on 4 L Vital Signs Temp Pulse Resp BP Pulse Ox 36.9 C 64 29 H 119/75 100 07/14/18 02:00 07/14/18 07:00 07/14/18 07:00 07/14/18 07:00 07/14/18 07:00 Laboratory Results 07/14/18 04:45 07/14/18 04:45 07/13/18 07/14/18 07/15/18 05:59 05:59 05:59 Intake Total 3971 1300 Output Total 1140 1200 Balance 2831 100 Sputum specimen was overly contaminated with oral denae Blood cultures from 07/12 remain no growth Influenza a positive Legionella urine antigen, HIV antibody, STI testing pending - Physical Exam General Appearance: alert, no apparent distress EENT: pharynx normal, No thrush Respiratory: coarse breath sounds Cardiac/Chest: regular rate, rhythm Abdomen: non-tender, soft Skin: No rash, No embolic lesions Neuro/Psych: oriented x 3 ICD10 Worksheet Patient Problems: Problems Problem Status Onset Influenza Acute Pneumonia Acute
[2018-07-14] MEDS: CLOTRIMAZOLE 1% 15 GM CRTUBE TP SCH (09:39)
[2018-07-14] MEDS: THIAMINE HCL 200 MG in NS 100 ML IV SCH ×2 (09:45→22:03)
[2018-07-14] MEDS: LINEZOLID 600 MG TAB PO SCH ×2 (09:45→21:12)
[2018-07-14] MEDS: OSELTAMIVIR PHOSPHATE 75 MG CAP PO SCH ×2 (09:46→21:12)
[2018-07-14] MEDS: GABAPENTIN 300 MG CAP PO SCH ×3 (09:46→21:12)
[2018-07-14] MEDS: FLUDROCORTISONE ACETATE 0.1 MG TAB PO SCH (09:46)
[2018-07-14] MEDS: ENOXAPARIN 40 MG/0.4 ML SYR SC SCH (09:48)
--- NOTE | 2018-07-14 12:19 | ASMTCMCOM ---
CM Note CM Note Notes: 38yo male admitted for SOB, PNA, Influenza, Hypoxic respiratory insuff. He has a Hx of Sciatica. Patient is a former smoker and drug user. He lives with his parents and 2 children. May not have discharge needs. Date Signed: 07/14/2018 12:18 PM Electronically Signed By:Prerna Alberts LCSW
[2018-07-14] MEDS: ACETAMINOPHEN 325 MG TAB PO PRN ×2 (13:19→21:40)
--- NOTE | 2018-07-14 13:55 | HOSPPROG ---
Hospitalist Progress Note Assessment/Plan: #Septic shock: Influenza, multilobar PNA (h/o MRSA) -Linezolid, LQ, Tamiflu. Stop LQ if Legionella negative -no vegetation on echo -pending: blood cultures, legionella, HIV, HCV -on pressors, Vit C, hydrocortisone/florinef #AHRF: due to above. Not requiring intubation now #Lactic acidosis: hydrate #Substance abuse: snort/smokes meth. Counseled on cessation #Tobacco dependence: counseled on cessation #Tachycardia: due to acute illness. Resolved #Sciatica: gabapentin #Social: recently jailed #DVT ppx: Lovenox Inpatient admission: critically-ill requiring pressors, IV abx Critical care time spent: >35 min evaluating pt, labs and d/w Dr. Gutierrez Subjective: easier to breath today Objective: Vital Signs Temp Pulse Resp BP Pulse Ox 36.6 C 104 H 27 H 88/50 L 98 07/14/18 12:00 07/14/18 13:22 07/14/18 13:22 07/14/18 13:22 07/14/18 13:22 Laboratory Results 07/14/18 04:45 07/14/18 04:45 07/13/18 07/14/18 07/15/18 05:59 05:59 05:59 Intake Total 3971 1300 Output Total 1140 2000 Balance 2831 -700 PT 17.1 SEC (12.0-15.0) H 07/13/18 05:15 INR 1.38 (0.83-1.16) H 07/13/18 05:15 - Time Spent With Patient Time Spent with Patient: greater than 35 minutes Time Spent with Patient: Greater than 35 minutes spent on this patients care, greater than 50% of time spent counseling, educating, and coordinating care regarding the above mentioned plan. - Physical Exam Constitutional: no apparent distress Eyes: PERRL Ears, Nose, Mouth, Throat: moist mucous membranes Cardiovascular: regular rate and rhythym Respiratory: rhonchi Gastrointestinal: normoactive bowel sounds Genitourinary: no bladder fullness Skin: warm Musculoskeletal: other (left subclavian catheter) Neurologic: CN II-XII Intact Psychiatric: interacting appropriately ICD10 Worksheet Patient Problems: Problems Problem Status Onset Influenza Acute Pneumonia Acute
[2018-07-14] MEDS: MIDODRINE HCL 5 MG TAB PO SCH ×2 (14:39→21:12)
[2018-07-15] MEDS: HYDROCORTISONE 100 MG/2 ML VIAL IVP SCH ×2 (00:05→05:32)
[2018-07-15] MEDS: CLOTRIMAZOLE 1% 15 GM CRTUBE TP SCH ×3 (00:06→19:34)
[2018-07-15] MEDS ORDERED: HYDROCORTISONE 100 MG/2 ML VIAL IVP SCH (02:30)
[2018-07-15] MEDS: ASCORBIC ACID 1,500 MG in D5W 100 ML IV SCH ×2 (03:15→08:25)
[2018-07-15] MEDS: MIDODRINE HCL 5 MG TAB PO SCH (05:33)
[2018-07-15 05:59] LABS: PLATELET COUNT 273 10^3/uL (150-400)
[2018-07-15 06:44] LABS: HEPATITIS C ANTIBODY TOTAL NEGATIVE (NEGATIVE); HIV TYPE 1 AND 2 NEGATIVE (NEGATIVE)
[2018-07-15] MEDS: KETOROLAC 30 MG/1 ML SDV IVP PRN ×3 (07:47→20:49)
[2018-07-15] MEDS: GABAPENTIN 300 MG CAP PO SCH ×3 (08:19→20:49)
[2018-07-15] MEDS: FLUDROCORTISONE ACETATE 0.1 MG TAB PO SCH (08:19)
[2018-07-15] MEDS: LINEZOLID 600 MG TAB PO SCH ×2 (08:19→19:32)
[2018-07-15] MEDS: OSELTAMIVIR PHOSPHATE 75 MG CAP PO SCH ×2 (08:19→19:32)
[2018-07-15] MEDS: ENOXAPARIN 40 MG/0.4 ML SYR SC SCH (08:21)
--- NOTE | 2018-07-15 08:21 | CPEKG ---
Test Reason : OPEN Blood Pressure : / mmHG Vent. Rate : 137 BPM Atrial Rate : 138 BPM P-R Int : 134 ms QRS Dur : 075 ms QT Int : 278 ms P-R-T Axes : 044 034 021 degrees QTc Int : 420 ms Sinus tachycardia Confirmed by Melo Rodriguez ([id number]) on 07/15/2018 8:21:00 AM Referred By: Confirmed By:Mleo Rodriguez
[2018-07-15] MEDS: THIAMINE HCL 200 MG in NS 100 ML IV SCH (09:02)
--- NOTE | 2018-07-15 09:03 | HOSPPROG ---
Hospitalist Progress Note Assessment/Plan: #Septic shock: Influenza, multilobar PNA (h/o MRSA) -Linezolid, LQ, Tamiflu. Stop LQ if Legionella negative -no vegetation on echo -pending: blood cultures, legionella. HIV negative. -off pressors -CBC up, suspect from steroids #Stap multilobar PNA: on broad-abx. Will discuss narrowing with ID #AHRF: due to above. Not requiring intubation now #Lactic acidosis: hydrate #Substance abuse: snort/smokes meth. Counseled on cessation #Tobacco dependence: counseled on cessation #Tachycardia: due to acute illness. Resolved #Sciatica: gabapentin #Social: recently jailed #DVT ppx: Lovenox Inpatient admission: ok for med-surg Subjective: feeling better; less sputum production Objective: Vital Signs Temp Pulse Resp BP Pulse Ox 36.5 C 60 28 H 125/74 H 93 07/15/18 05:00 07/15/18 07:00 07/15/18 07:00 07/15/18 07:00 07/15/18 07:00 Microbiology 07/14/18 08:59 - Final Sputum, Expectorated Laboratory Results 07/15/18 05:30 07/15/18 05:30 07/14/18 07/15/18 07/16/18 05:59 05:59 05:59 Intake Total 3971 5012 Output Total 1140 6125 Balance 2831 -1113 PT 17.1 SEC (12.0-15.0) H 07/13/18 05:15 INR 1.38 (0.83-1.16) H 07/13/18 05:15 - Time Spent With Patient Time Spent with Patient: greater than 35 minutes Time Spent with Patient: Greater than 35 minutes spent on this patients care, greater than 50% of time spent counseling, educating, and coordinating care regarding the above mentioned plan. - Physical Exam Constitutional: no apparent distress Eyes: PERRL Ears, Nose, Mouth, Throat: moist mucous membranes Cardiovascular: regular rate and rhythym Respiratory: rhonchi (but less than yesterday) Gastrointestinal: normoactive bowel sounds Genitourinary: no bladder fullness Skin: warm Musculoskeletal: full muscle strength, other (subclavian catheter in place) Neurologic: AAOx3, CN II-XII Intact Psychiatric: interacting appropriately ICD10 Worksheet Patient Problems: Problems Problem Status Onset Influenza Acute Pneumonia Acute
[2018-07-15] MEDS: BENZONATATE 100 MG CAP PO PRN ×2 (10:40→19:32)
[2018-07-15] MEDS: guaiFENesin 600 MG TAB.ER PO SCH ×3 (11:19→19:32)
--- NOTE | 2018-07-15 11:31 | PCMIDPN ---
Assessment/Plan: Assessment: Influenza A followed by secondary bacterial pneumonia with Staphylococcus aureus. Patient is currently on linezolid, ceftriaxone and Levaquin. He is making clinical improvements. He is not having as much sputum production as he did over the last couple of days. Still remains somewhat hypoxic with effort but improved. Plan: 1. Continue IV linezolid come with ceftriaxone and Levaquin. 2. Follow his improving clinical course. 07/15/18 16:14 Subjective: Pt states that he is feeling progressively better. Reports increasing dry cough with no sputum production and mild dyspnea on exertion. His SpO2 is 96% on RA. I, Fatmata Tate, am scribing for, and in the presence of, Will Souza MD. IWill MD, personally performed the services described in this documentation, as scribed by Fatmata Tate in my presence, and it is both accurate and complete. Objective: Vital Signs Temp Pulse Resp BP Pulse Ox 36.6 C 57 L 18 118/86 H 96 07/15/18 08:00 07/15/18 10:00 07/15/18 10:00 07/15/18 10:00 07/15/18 10:00 Microbiology 07/14/18 08:59 - Final Sputum, Expectorated Laboratory Results 07/15/18 05:30 07/15/18 05:30 07/14/18 07/15/18 07/16/18 05:59 05:59 05:59 Intake Total 3971 5012 680 Output Total 1140 6125 Balance 2831 -1113 680 Microbiology: 07/12/18 Blood cx 2/2 sets, NGTD. 07/13/18 Expectorated sputum, negative. 07/14/18 Sputum culture grew 2+ Staph aureus and mixed oropharyngeal denae and gram stain is positive for 2+ epithelial cells, 3+ PMNs, 4+ GPC in pairs, 1+ yeast, and 1+ gram positive rods. Imaging studies: Chest XRay 07/12 through 07/15 reviewed with most recent impression noted for multifocal pneumonia, minimally improved in the peripheral right upper lobe and at the left base, and slightly more consolidate in the left upper lobe. 07/13/18 CT Chest with contrast impression: 1) No central pulmonary embolism. 2 ) Multifocal airspace consolidation with foci of early cavitation in bilateral upper lobes. No abscess. 3) No effusion or pericardial effusion. 4) Mild reactive lymphedema. 07/13/18 Echocardiogram reviewed. - Physical Exam General Appearance: alert, no apparent distress Cardiac/Chest: other (left upper chest port with surrounding contact dermatitis) Skin: No rash Neuro/Psych: oriented x 3 - Line/s RUE PICC Lines: No drainage, No erythema ICD10 Worksheet Patient Problems: Problems Problem Status Onset Influenza Acute Pneumonia Acute
[2018-07-15 13:13] LABS: GC AMPLIFICATION GENPROBE NEGATIVE (NEGATIVE)
[2018-07-15] MEDS: ACETAMINOPHEN 325 MG TAB PO PRN (19:33)
[2018-07-16] MEDS: BENZONATATE 100 MG CAP PO PRN ×2 (01:44→16:16)
[2018-07-16] MEDS: KETOROLAC 30 MG/1 ML SDV IVP PRN ×4 (03:01→23:22)
[2018-07-16] MEDS: ACETAMINOPHEN 325 MG TAB PO PRN ×3 (03:02→23:22)
[2018-07-16] MEDS: FLUTICASONE NASAL 120 SPRAYS/16 GM MDI EACHNARE SCH ×2 (03:26→08:06)
[2018-07-16] MEDS: ALBUTEROL 3 ML DEYVIAL IH PRN ×3 (04:07→20:38)
[2018-07-16 05:48] LABS: PLATELET COUNT 279 10^3/uL (150-400)
[2018-07-16] MEDS: ENOXAPARIN 40 MG/0.4 ML SYR SC SCH (08:02)
[2018-07-16] MEDS: GABAPENTIN 300 MG CAP PO SCH ×3 (08:04→20:46)
[2018-07-16] MEDS: OSELTAMIVIR PHOSPHATE 75 MG CAP PO SCH ×2 (08:04→20:46)
[2018-07-16] MEDS: guaiFENesin 600 MG TAB.ER PO SCH ×2 (08:04→20:46)
[2018-07-16] MEDS: FLUDROCORTISONE ACETATE 0.1 MG TAB PO SCH (08:04)
[2018-07-16] MEDS: LINEZOLID 600 MG TAB PO SCH ×2 (08:18→20:46)
[2018-07-16] MEDS: CLOTRIMAZOLE 1% 15 GM CRTUBE TP SCH ×2 (09:19→21:12)
--- NOTE | 2018-07-16 11:59 | PCMIDPN ---
Assessment/Plan: Assessment: Influenza A followed by secondary bacterial pneumonia with Staphylococcus aureus. Patient is currently on linezolid, ceftriaxone and Levaquin. He is making clinical improvements but is very tired out from his cough. Will discontinue the Levaquin leaving him on linezolid and ceftriaxone. I think it will take some time for him to improve significantly although there are some encouraging signs today such as improved chest x-ray and decreased white blood cell count. Plan: 1. Continue IV linezolid with ceftriaxone. 2. Discontinue Levaquin. 3. Follow his improving clinical course and chest x-ray.. Subjective: Pt states the coughing fits are taking a toll on me with associated insomnia. Lying flat exacerbates his cough. Pt's CT Chest scan and CXRs are reviewed with him today at bedside. I, Fatmata Tate, am scribing for, and in the presence of, Will Souza MD. IWill MD, personally performed the services described in this documentation, as scribed by Fatmata Tate in my presence, and it is both accurate and complete. Objective: Vital Signs Temp Pulse Resp BP Pulse Ox 37.0 C 93 24 H 130/79 H 94 07/16/18 07:51 07/16/18 07:51 07/16/18 07:51 07/16/18 07:51 07/16/18 07:51 Microbiology 07/14/18 08:59 - Final Sputum, Expectorated Sputum Culture - Final Staphylococcus Aureus Laboratory Results 07/16/18 05:20 07/16/18 05:20 07/15/18 07/16/18 07/17/18 05:59 05:59 05:59 Intake Total 5012 2769.3 Output Total 6125 Balance -1113 2769.3 07/13/18 Sputum cx, contaminated with oral denae. 07/12/18 Blood cx (2) NGTD. Influenza A positive. 07/13/18 Legionella urine antigen, HIV antibody, STI testing negative; syphilis pending results. - Physical Exam General Appearance: alert, other (clammy and flushed in appearance ) Skin: No rash Neuro/Psych: oriented x 3 ICD10 Worksheet Patient Problems: Problems Problem Status Onset Influenza Acute Pneumonia Acute
[2018-07-16] MEDS ORDERED: POTASSIUM CL 20 MEQ TAB PO ONE (13:04)
--- NOTE | 2018-07-16 13:27 | HOSPPROG ---
Hospitalist Progress Note Assessment/Plan: #Septic shock: Influenza, multilobar PNA (h/o MRSA) -Linezolid, CTX, Tamiflu -Stop LQ with negative Legionella -no vegetations -negative blood culture. -off pressors, CBC nearly normalized #AHRF: due to above. Not requiring intubation now #Lactic acidosis: hydrate #Substance abuse: snort/smokes meth. Counseled on cessation #Tobacco dependence: counseled on cessation #Tachycardia: due to acute illness. Resolved #Sciatica: gabapentin #Social: recently jailed #DVT ppx: Lovenox Inpatient admission: ok for med-surg Subjective: coughing still persistent with brown/red sputum Objective: Vital Signs Temp Pulse Resp BP Pulse Ox 37.0 C 93 24 H 130/79 H 94 07/16/18 07:51 07/16/18 07:51 07/16/18 07:51 07/16/18 07:51 07/16/18 07:51 Microbiology 07/14/18 08:59 - Final Sputum, Expectorated Sputum Culture - Final Staphylococcus Aureus Laboratory Results 07/16/18 05:20 07/16/18 05:20 07/15/18 07/16/18 07/17/18 05:59 05:59 05:59 Intake Total 5012 2769.3 Output Total 6125 Balance -1113 2769.3 PT 17.1 SEC (12.0-15.0) H 07/13/18 05:15 INR 1.38 (0.83-1.16) H 07/13/18 05:15 - Time Spent With Patient Time Spent with Patient: greater than 35 minutes Time Spent with Patient: Greater than 35 minutes spent on this patients care, greater than 50% of time spent counseling, educating, and coordinating care regarding the above mentioned plan. - Physical Exam Constitutional: no apparent distress Eyes: PERRL Ears, Nose, Mouth, Throat: moist mucous membranes Cardiovascular: regular rate and rhythym Respiratory: rhonchi Gastrointestinal: normoactive bowel sounds Genitourinary: no bladder fullness Skin: warm Musculoskeletal: full muscle strength Neurologic: CN II-XII Intact Psychiatric: flat affect ICD10 Worksheet Patient Problems: Problems Problem Status Onset Influenza Acute Pneumonia Acute
[2018-07-16] MEDS: valACYclovir 500 MG TAB PO PRN (13:41)
[2018-07-16] MEDS: CEPACOL LOZENGE PO PRN (16:24)
[2018-07-17] MEDS: BENZONATATE 100 MG CAP PO PRN ×3 (04:46→21:13)
[2018-07-17] MEDS: CEPACOL LOZENGE PO PRN ×2 (04:46→22:09)
[2018-07-17] MEDS: ACETAMINOPHEN 325 MG TAB PO PRN ×3 (04:46→19:10)
[2018-07-17 05:08] LABS: PLATELET COUNT 284 10^3/uL (150-400)
[2018-07-17] MEDS: KETOROLAC 30 MG/1 ML SDV IVP PRN ×2 (07:57→13:31)
[2018-07-17] MEDS: guaiFENesin 600 MG TAB.ER PO SCH ×2 (07:58→21:10)
[2018-07-17] MEDS: FLUDROCORTISONE ACETATE 0.1 MG TAB PO SCH (07:58)
[2018-07-17] MEDS: OSELTAMIVIR PHOSPHATE 75 MG CAP PO SCH (07:58)
[2018-07-17] MEDS: LINEZOLID 600 MG TAB PO SCH (07:58)
[2018-07-17] MEDS: FLUTICASONE NASAL 120 SPRAYS/16 GM MDI EACHNARE SCH (07:58)
[2018-07-17] MEDS: CLOTRIMAZOLE 1% 15 GM CRTUBE TP SCH ×2 (07:58→21:10)
[2018-07-17] MEDS: ENOXAPARIN 40 MG/0.4 ML SYR SC SCH (07:59)
[2018-07-17] MEDS: GABAPENTIN 300 MG CAP PO SCH ×3 (07:59→21:10)
--- NOTE | 2018-07-17 08:52 | HOSPPROG ---
Hospitalist Progress Note Assessment/Plan: #New fever: multiple loose stools, persistent cough. -WBC back up and progressive infiltrate -CXR, GI panel, repeat blood cultures #MSSA multilobar PNA: -Febrile overnight. Increased infiltrate (personally reviewed CXR). Repeat CT. Discussed with Dr. Busch -cont broad abx -no vegetation on echo #Septic shock: resolved. Required pressors #Influenza: complete 5 days Tamiflu today Influenza #AHRF: on RA. due to above. Not requiring intubation now #Lactic acidosis: hydrate #Substance abuse: snort/smokes meth. Counseled on cessation #Tobacco dependence: counseled on cessation #Tachycardia: due to acute illness. Resolved #Sciatica: gabapentin #Social: recently jailed #DVT ppx: Lovenox Inpatient admission: cont inpt for IV abx, repeat CT Subjective: coughing during exam. Multiple loose stools past couple of days Objective: Vital Signs Temp Pulse Resp BP Pulse Ox 36.9 C 91 18 121/81 H 91 L 07/17/18 08:00 07/17/18 08:00 07/17/18 08:00 07/17/18 08:00 07/17/18 08:00 Microbiology 07/14/18 08:59 - Final Sputum, Expectorated Sputum Culture - Final Staphylococcus Aureus Laboratory Results 07/17/18 04:59 07/17/18 04:59 07/16/18 07/17/18 07/18/18 05:59 05:59 05:59 Intake Total 2769.3 3500 Balance 2769.3 3500 PT 17.1 SEC (12.0-15.0) H 07/13/18 05:15 INR 1.38 (0.83-1.16) H 07/13/18 05:15 - Time Spent With Patient Time Spent with Patient: greater than 35 minutes Time Spent with Patient: Greater than 35 minutes spent on this patients care, greater than 50% of time spent counseling, educating, and coordinating care regarding the above mentioned plan. - Physical Exam Constitutional: no apparent distress Ears, Nose, Mouth, Throat: moist mucous membranes Cardiovascular: regular rate and rhythym Respiratory: no respiratory distress, No rhonchi Gastrointestinal: normoactive bowel sounds, soft, non-tender abdomen Genitourinary: no bladder fullness Skin: normal color Musculoskeletal: full muscle strength Neurologic: AAOx3, CN II-XII Intact Psychiatric: interacting appropriately ICD10 Worksheet Patient Problems: Problems Problem Status Onset Influenza Acute Pneumonia Acute
[2018-07-17] MEDS: guaiFENesin/CODEINE PHOS 10 ML UDCUP PO PRN ×3 (08:59→21:13)
--- NOTE | 2018-07-17 10:54 | ASMTCMCOM ---
CM Note CM Note Notes: Spoke w/RN, pt will be independent at dc but still quite ill. 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 Anticipate he will dc home w/support of family when medically stable. CM available for changes. DC Plan: Independent Date Signed: 07/17/2018 10:53 AM Electronically Signed By:Della Rosario RN
[2018-07-17] MEDS ORDERED: IOPAMIDOL (ISOVUE 370) 100 ML BTL IV ONE (12:54)
[2018-07-17] MEDS: ceFAZolin 2 GM/DEXTROSE 100 ML IV SCH ×2 (13:31→21:10)
--- NOTE | 2018-07-17 16:03 | PCMIDPN ---
Assessment/Plan: Assessment/Plan: * Multifocal pneumonia due to MSSA status post influenza A: Recurrent fever today with ongoing respiratory symptoms. Concerning for possible progression to lung abscess or necrotizing pneumonia. Will repeat CT scan of chest to further evaluate. Will consolidate linezolid and ceftriaxone to cefazolin primarily targeting MSSA as suspect this is likely etiology for patient's pneumonia. Follow up repeat blood cultures were obtained with recurrent fever. * Diarrhea: Improved today. GI pathogen panel PCR is negative for C difficile. 07/17/18 15:59 07/17/18 16:01 07/17/18 16:03 Subjective: Patient with fever and rigors today. Persistent cough and pleuritic chest pain. 2 episodes of diarrhea today which is less than that yesterday when he had 4 episodes of watery diarrhea. No nausea or vomiting. Objective: Vital Signs Temp Pulse Resp BP Pulse Ox 36.9 C 91 18 121/81 H 91 L 07/17/18 08:00 07/17/18 08:00 07/17/18 08:00 07/17/18 08:00 07/17/18 08:00 Microbiology 07/17/18 08:59 Gastrointestinal Tract Panel (PCR) - Final Stool No Organism Detected By Pcr 07/14/18 08:59 - Final Sputum, Expectorated Sputum Culture - Final Staphylococcus Aureus Laboratory Results 07/17/18 04:59 07/17/18 04:59 07/16/18 07/17/18 07/18/18 05:59 05:59 05:59 Intake Total 2769.3 3500 Balance 2769.3 3500 Linezolid #5 Ceftriaxone #5 Sputum with MSSA Blood cultures x2 07/17/2018 pending Stool GI pathogen panel by PCR negative - Physical Exam General Appearance: alert, non-toxic EENT: No scleral icterus, No thrush Respiratory: crackles (Bilateral upper lung hi), other (Frequent episodes of cough), No respiratory distress Cardiac/Chest: regular rate, rhythm, systolic murmur (2/6 left upper sternal border) Extremities: No inflammation Abdomen: non-tender, No distended Skin: No embolic lesions ICD10 Worksheet Patient Problems: Problems Problem Status Onset Influenza Acute Pneumonia Acute
[2018-07-18] MEDS: ACETAMINOPHEN 325 MG TAB PO PRN ×3 (01:39→18:38)
[2018-07-18] MEDS: guaiFENesin/CODEINE PHOS 10 ML UDCUP PO PRN ×3 (03:35→19:41)
[2018-07-18] MEDS: ceFAZolin 2 GM/DEXTROSE 100 ML IV SCH ×3 (05:21→21:46)
[2018-07-18 05:24] LABS: PLATELET COUNT 296 10^3/uL (150-400)
[2018-07-18] MEDS: CEPACOL LOZENGE PO PRN ×3 (05:24→19:41)
[2018-07-18] MEDS: ENOXAPARIN 40 MG/0.4 ML SYR SC SCH (09:06)
[2018-07-18] MEDS: HYDROmorphONE/DILAUDID 1 MG/ML INJ IVP PRN ×3 (09:07→18:51)
[2018-07-18] MEDS: guaiFENesin 600 MG TAB.ER PO SCH ×2 (09:08→21:46)
[2018-07-18] MEDS: GABAPENTIN 300 MG CAP PO SCH ×3 (09:08→21:46)
[2018-07-18] MEDS: CLOTRIMAZOLE 1% 15 GM CRTUBE TP SCH ×2 (09:13→21:46)
[2018-07-18] MEDS: FLUTICASONE NASAL 120 SPRAYS/16 GM MDI EACHNARE SCH (09:14)
--- NOTE | 2018-07-18 14:22 | PCMIDPN ---
Assessment/Plan: #MSSA multifocal cavitary PNA complicating influenza s/p tamiflu. CT scan of chest yesterday showed overall worsening but suspect this is expected course/ evolution of CT scan with pneumonia. No clear drainable focus identified --continue cefazolin #Fever, VAUGHAN and severe neck pain: no new deficits and no meningismus. Cdiff negative yesterday. Suspect VAUGHAN due to fever, but due to severity, warrants w/u --will obtain an MRI of the head and neck to look for diskitis, osteomyelitis, epidural abscess --check LFTs and monitor for rash as evolving drug reaction could be possible --blood cultures were repeated yesterday and all central lines are out meds, Abx #6 cefazolin 2gm IV q8h #[address] Benedict and nursing. Subjective: Pt initially states that he feels like jumping off the building because he does not feel like he is improving. Complains of thoracic back pain, severe headache described as an arrow that starts at the base of his occipital lobe which radiates to his frontal lobe. Is described as the worse headache of his life. His headache began x2 days ago. Also notes that the VAUGHAN harbingers his fever and when his fever resolves his VAUGHAN subsides. Reports associated productive cough, photosensitivity, lack of appetite (only tolerates fruit), hoarse voice, and diarrhea. Reports that the highest spirometry reading is 1700 milliliters. 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 IFatmata, am scribing for, and in the presence of, Yaneth George MD. IYaneth MD, personally performed the services described in this documentation, as scribed by Fatmata Tate in my presence, and it is both accurate and complete. Objective: Vital Signs Temp Pulse Resp BP Pulse Ox 36.9 C 93 20 110/71 93 07/18/18 10:35 07/18/18 10:35 07/18/18 10:35 07/18/18 10:35 07/18/18 10:35 Microbiology 07/17/18 08:59 Gastrointestinal Tract Panel (PCR) - Final Stool No Organism Detected By Pcr Laboratory Results 07/18/18 05:17 07/18/18 05:17 07/17/18 07/18/18 07/19/18 05:59 05:59 05:59 Intake Total 35[address] Chest with IV contrast impression: 1) Interval worsening of multifocal consolidative opacities and cavitation with development of small bilateral pleural effusions. 2) No loculated fluid collection is seen within the pulmonary parenchyma to suggest intrapulmonary abscess formation. Personally reviewed CT scan Echocardiogram reviewed. - Physical Exam General Appearance: alert, apparent distress, other (generalized weakness and malaise ) EENT: photophobia, other (fair dentition, no oral ulcerations ), No scleral icterus, No thrush Respiratory: coarse breath sounds (scattered ), other (communicative with difficulty completing full sentences due to coughing ), No accessory muscle use Neck: supple, other (no pain with flexion, no meningismus) Cardiac/Chest: regular rate, rhythm Extremities: other (R-ankle monitor/bracelet in place ), No pedal edema Abdomen: non-tender, soft Skin: other (no nail changes, no peripheral stigmata of endocarditis, extensive tattooing), No rash Neuro/Psych: no motor/sensory deficits, alert, oriented x 3, depressed affect, No abnormal CN - Time Spent With Patient Time Spent with Patient: greater than 35 minutes Time Spent with Patient: Greater than 35 minutes spent on this patients care, greater than 50% of time spent counseling, educating, and coordinating care regarding the above mentioned plan. ICD10 Worksheet Patient Problems: Problems Problem Status Onset Influenza Acute Pneumonia Acute
--- NOTE | 2018-07-18 15:03 | ECHO ---
[email or web address] [address] Main: [phone] Fax: Transthoracic Echocardiogram Name: YANG GOMEZ MR#: [id number] Study Date: 07/18/2018 Study Time: 01:35 PM Date of : 1980 Age: 38 year(s) Height: 182.9 cm (72 in.) Weight: 81.19 kg (179 lb.) BSA: 2.03 m2 Gender: Male Examination: Limited Echo Indication: Persistent fever with MSSA, PNA Image Quality: Contrast: Requested by: Leonor Benedict BP: 118 mmHg/75 mmHg Heart Rate: Rhythm: Indication: Persistent fever with MSSA, PNA Procedure Staff Graduate Teaching Associate: Liam Forbes RDCS Reading Physician: Gunnar Elias MD Requesting Provider: Conclusions: This is a limited echo to evaluate for valve vegetation. There is no obvious evidence of a aortic or mitral valve vegetation. There is no evidence of tricuspid valve or pulmonic valve vegetation. Compared to the previous exam of 07/13/18 the Left venticular function has improved from 45% to 75%. Measurements: Chambers Valvular Assessment AV/MV Valvular Assessment TV/PV Normal Normal Normal Name Value Range Name Value Range Name Value Range IVSd (2D): 0.9 cm (0.6 cm-1.1 cm) LVDd (2D): 4.8 cm (4.2 cm-5.9 cm) LVDs (2D): 2.7 cm (2.1 cm-4 cm) LVPWd (2D): 1.0 cm (0.6 cm-1 cm) LVEF (2D): 74 (>=54 %) Continued Measurements: Findings: Exam Comments: This is a limited echo to evaluate for valve vegetation. There is no obvious evidence of a aortic or mitral valve vegetation. There is no evidence of tricuspid valve or pulmonic valve vegetation. Compared to the previous exam of 07/13/18 the Left venticular function has improved from 45% to 75%. Patient: YANG GOMEZ Study Date: 07/18/2018 Page 1 of 2 01:35 PM (No Signature Object) Patient: YANG GOMEZ Study Date: 07/18/2018 Page 2 of 2 01:35 PM [id number]
[2018-07-18] MEDS ORDERED: GADOBUTROL 10 ML VIAL IVP ONE (17:02)
--- NOTE | 2018-07-18 17:53 | HOSPPROG ---
Hospitalist Progress Note Assessment/Plan: #Fever: persistent. WBC trending up, increased oxygen needs, progressive infiltrate on CT. No area to drain. Negative GI PCR. Had subclavian (pulled 07/16) , blood cultures NGTD -negative Legionella, HIV, G&C. Syphilis -repeat echo to re-evaluate for vegetations. Discussed with Dr. George #MSSA multilobar PNA: Linzolid. Plan as above #Septic shock: resolved. Required pressors #Influenza: Tamiflu course completed #AHRF: increased oxygen needs #Lactic acidosis: hydrate #Substance abuse: snort/smokes meth. Counseled on cessation #Tobacco dependence: counseled on cessation #Tachycardia: febrile. APAP, IVFs #Sciatica: gabapentin #Social: recently jailed #DVT ppx: Lovenox Inpatient admission: cont inpt for IV abx, repeat CT Subjective: headache, neck pain. Persistent cough Objective: Vital Signs Temp Pulse Resp BP Pulse Ox 37.7 C 84 18 134/81 H 93 07/18/18 15:59 07/18/18 15:59 07/18/18 15:59 07/18/18 15:59 07/18/18 15:59 Microbiology 07/17/18 08:59 Gastrointestinal Tract Panel (PCR) - Final Stool No Organism Detected By Pcr Laboratory Results 07/18/18 05:17 07/18/18 05:17 07/17/18 07/18/18 07/19/18 05:59 05:59 05:59 Intake Total 3500 3350 Balance 3500 3350 PT 17.1 SEC (12.0-15.0) H 07/13/18 05:15 INR 1.38 (0.83-1.16) H 07/13/18 05:15 - Time Spent With Patient Time Spent with Patient: greater than 35 minutes Time Spent with Patient: Greater than 35 minutes spent on this patients care, greater than 50% of time spent counseling, educating, and coordinating care regarding the above mentioned plan. - Physical Exam Constitutional: other (ill-appearing. Coughing) Eyes: PERRL Ears, Nose, Mouth, Throat: moist mucous membranes Cardiovascular: regular rate and rhythym Respiratory: rhonchi Gastrointestinal: normoactive bowel sounds, soft, non-tender abdomen, tenderness Genitourinary: No alaniz in urethra Skin: warm Musculoskeletal: full muscle strength Neurologic: AAOx3, CN II-XII Intact, other (no meningmus) Psychiatric: interacting appropriately, flat affect ICD10 Worksheet Patient Problems: Problems Problem Status Onset Influenza Acute Pneumonia Acute
[2018-07-18] MEDS: NS 1,000 ML IV SCH (18:25)
[2018-07-19] MEDS: NS 1,000 ML IV SCH ×2 (00:50→13:31)
[2018-07-19] MEDS: HYDROmorphONE/DILAUDID 1 MG/ML INJ IVP PRN ×3 (00:50→23:36)
[2018-07-19] MEDS: guaiFENesin/CODEINE PHOS 10 ML UDCUP PO PRN ×4 (01:46→23:36)
[2018-07-19] MEDS: ACETAMINOPHEN 325 MG TAB PO PRN ×5 (02:38→23:35)
[2018-07-19] MEDS: oxyCODONE IR 5 MG TAB PO PRN ×4 (02:40→19:38)
[2018-07-19] MEDS: ceFAZolin 2 GM/DEXTROSE 100 ML IV SCH ×3 (05:21→21:15)
[2018-07-19 05:32] LABS: PLATELET COUNT 324 10^3/uL (150-400)
[2018-07-19] MEDS: CEPACOL LOZENGE PO PRN ×2 (07:47→15:55)
[2018-07-19] MEDS: guaiFENesin 600 MG TAB.ER PO SCH ×2 (07:47→21:15)
[2018-07-19] MEDS: BENZONATATE 100 MG CAP PO PRN ×2 (07:47→15:55)
[2018-07-19] MEDS: ENOXAPARIN 40 MG/0.4 ML SYR SC SCH (07:48)
[2018-07-19] MEDS: GABAPENTIN 300 MG CAP PO SCH ×3 (07:48→21:16)
[2018-07-19] MEDS: CLOTRIMAZOLE 1% 15 GM CRTUBE TP SCH ×2 (07:55→21:40)
--- NOTE | 2018-07-19 08:36 | PCMIDPN ---
Assessment/Plan: #MSSA multifocal cavitary PNA complicating influenza s/p tamiflu. Improved lung function w increased level on IS and decreased O2 requirements. --continue cefazolin --still awaiting more improvement to determine recommendation for antibiotic duration # fever, leukocytosis. Fever and wbc seems to be trending down a bit today, suspect due to primary problem, severe necrotizing pneumonia due to MSSA and may intermittently continue. Workup for other causes: Echo showed improved cardiac function, no new valvular abnormalities, MRI of brain and neck showed no findings consistent with epidural abscess, diskitis or osteomyelitis. There was some bone marrow abnormalities, unclear significance. --continue to monitor blood cultures, fever curve # Transient rash, not present this AM meds, Abx #7 cefazolin 2gm IV q8h #2 Microbiology 07/14/18 08:59 Sputum, MSSA 07/12/18 18:00 Blood Cx (2) Neg 07/17/18 09:18 Blood Cx (2) NGTD Subjective: Cough is a little bit better, less headache but patient attributes to starting oxycodone Reports a fever to 102.5 at around 8:00 a.m. yesterday GI symptoms are stable, stool slightly loose Able to get incentive spirometer up to 2000 mL today Objective: Vital Signs Temp Pulse Resp BP Pulse Ox 36.7 C 92 18 126/84 H 96 (2L) 07/19/18 08:00 07/19/18 08:00 07/19/18 08:00 07/19/18 08:00 07/19/18 08:00 Laboratory Results 07/19/18 05:15 07/18/18 05:17 07/18/18 07/19/18 07/20/18 05:59 05:59 05:59 Intake Total 3350 4116 Balance 3350 4116 - Physical Exam General Appearance: alert, no apparent distress Respiratory: normal breath sounds, other (Mildly breathless), No accessory muscle use, No crackles, No wheezing Neck: supple Cardiac/Chest: regular rate, rhythm, No systolic murmur Extremities: No pedal edema Male Genitalia: No alaniz Skin: warm/dry, pallor, No diaphoresis, No jaundice, No rash, No embolic lesions Neuro/Psych: alert, normal mood/affect, oriented x 3 - Line/s PIV Lines: other (Left forearm), No drainage, No erythema - Time Spent With Patient Time Spent with Patient: greater than 35 minutes Time Spent with Patient: Greater than 35 minutes spent on this patients care, greater than 50% of time spent counseling, educating, and coordinating care regarding the above mentioned plan. ICD10 Worksheet Patient Problems: Problems Problem Status Onset Influenza Acute Pneumonia Acute
[2018-07-19] MEDS: FLUTICASONE NASAL 120 SPRAYS/16 GM MDI EACHNARE SCH (10:58)
--- NOTE | 2018-07-19 14:13 | ASMTCMCOM ---
CM Note CM Note Notes: Reviewed chart, pt recovering slowly but has been cleared by PT/OT for home. Anticipate pt will dc home w/support of parents when medically stable. CM available for any changes. DC Plan: Independent Date Signed: 07/19/2018 02:13 PM Electronically Signed By:Della Rosario RN
--- NOTE | 2018-07-19 15:15 | HOSPPROG ---
Hospitalist Progress Note Assessment/Plan: Demetri is a 38yo M who was diagnosed with influenza A and returned to the ED due to persistent fevers and worsening shortness of breath. First encounter, chart reviewed. #Fever w associated leukocytosis -subclavian (pulled 07/16), blood cultures NGTD -negative Legionella, HIV, G&C, Syphilis -repeat echo showed improved cardiac function, no valvular abnormalities -MRI of brain and neck showed no abscess, diskitis or osteomyelitis -second set of blood cx show no growth #rash -none noted today #MSSA multilobar PNA complicated in association w influenza -Cefazolin #Septic shock: resolved. -Required pressors #Influenza: Tamiflu course completed #AHRF -on room air today #Lactic acidosis -resolved #Substance abuse: snort/smokes meth. -Counseled on cessation #Tobacco dependence: -counseled on cessation #Tachycardia: febrile -resolved, will dc fluids #Sciatica: gabapentin #Social: recently jailed #DVT ppx: Lovenox #plan: encouraged Demetri to get OOB, ambulate in hallways w a mask. He's making improvement, but needs more time. Subjective: Demetri feels tired, gets lightheaded w activity. Objective: Vital Signs Temp Pulse Resp BP Pulse Ox 36.7 C 92 18 126/84 H 96 07/19/18 08:00 07/19/18 08:00 07/19/18 08:00 07/19/18 08:00 07/19/18 08:00 Laboratory Results 07/19/18 05:15 07/18/18 05:17 07/18/18 07/19/18 07/20/18 05:59 05:59 05:59 Intake Total 3350 4116 Balance 3350 4116 PT 17.1 SEC (12.0-15.0) H 07/13/18 05:15 INR 1.38 (0.83-1.16) H 07/13/18 05:15 - Physical Exam Constitutional: no apparent distress, appears nourished, not in pain Eyes: PERRL Ears, Nose, Mouth, Throat: hearing normal Cardiovascular: regular rate and rhythym Respiratory: no respiratory distress, rhonchi (few scattered) Gastrointestinal: normoactive bowel sounds Skin: warm, other (flushed) Musculoskeletal: generalized weakness Neurologic: AAOx3 Psychiatric: interacting appropriately ICD10 Worksheet Patient Problems: Problems Problem Status Onset Influenza Acute Pneumonia Acute
[2018-07-20] MEDS: oxyCODONE IR 5 MG TAB PO PRN ×4 (02:48→20:31)
[2018-07-20] MEDS: ACETAMINOPHEN 325 MG TAB PO PRN ×3 (04:13→20:30)
[2018-07-20] MEDS: ceFAZolin 2 GM/DEXTROSE 100 ML IV SCH ×3 (06:20→21:23)
[2018-07-20] MEDS: GABAPENTIN 300 MG CAP PO SCH ×3 (09:12→21:23)
[2018-07-20] MEDS: ENOXAPARIN 40 MG/0.4 ML SYR SC SCH (09:13)
[2018-07-20] MEDS: guaiFENesin/CODEINE PHOS 10 ML UDCUP PO PRN ×2 (09:13→18:32)
[2018-07-20] MEDS: guaiFENesin 600 MG TAB.ER PO SCH ×2 (09:13→20:31)
[2018-07-20] MEDS: FLUTICASONE NASAL 120 SPRAYS/16 GM MDI EACHNARE SCH (09:22)
[2018-07-20] MEDS: CLOTRIMAZOLE 1% 15 GM CRTUBE TP SCH (09:23)
[2018-07-20] MEDS: valACYclovir 500 MG TAB PO PRN (11:19)
--- NOTE | 2018-07-20 13:00 | PCMIDPN ---
Assessment/Plan: Assessment: Influenza A followed by secondary necrotic pneumonia with MSSA. Cefazolin monotherapy. He is making clinical improvements such as decreased oxygen requirement but still has a clinical appearance of illness and toxicity. Follow -up CT scan from 07/17/2018 shows the extent of necrotizing Staph aureus disease. Today the patient is complaining of a rash outbreak at the base of his scrotum which on examination is consistent with herpes simplex virus. We will place the patient on Valtrex 500 mg p.o. Twice daily for 3 days. Patient also complains of a sacral cleft that he occasionally gets discharge from discharging earlier today. Examination reveals excoriated tissue and possibly a fungal infection but no active drainage currently. Will use nystatin on the excoriated area and start fluconazole 100 mg p. O. Q.day. Plan: 1. Continue IV cefazolin. 2. Valtrex 500 mg p.o. Twice daily x3 days. 3. Fluconazole 100 mg p.o. Daily. 4. Follow clinical appearance. Subjective: Patient is resting in his hospital bed. He appears exhausted and ill. Occasional cough. Complains of rash the base of the scrotum as well as irritation at the sacral area. No fevers. Objective: Cefazolin # 3 Valtrex Vital Signs Temp Pulse Resp BP Pulse Ox 37.6 C 91 18 106/71 91 L 07/20/18 07:17 07/20/18 07:17 07/20/18 07:17 07/20/18 07:17 07/20/18 07:17 Laboratory Results 07/19/18 05:15 07/18/18 05:17 07/19/18 07/20/18 07/21/18 05:59 05:59 05:59 Intake Total 4116 Balance 4116 - Physical Exam General Appearance: WD/WN, alert, apparent distress (Mild), toxic (Mildly) Respiratory: lungs clear, normal breath sounds, No respiratory distress, No crackles Cardiac/Chest: regular rate, rhythm, No tachycardia Skin: normal color, warm/dry, rash (Herpetiform appearing rash at the base of the scrotum. Excoriated area in the sacral distribution.) Neuro/Psych: alert, normal mood/affect, oriented x 3 ICD10 Worksheet Patient Problems: Problems Problem Status Onset Influenza Acute Pneumonia Acute
--- NOTE | 2018-07-20 13:27 | HOSPPROG ---
Hospitalist Progress Note Assessment/Plan: Demetri is a 38yo M who was diagnosed with influenza A and returned to the ED due to persistent fevers and worsening shortness of breath. Evaluated the patient w Dr Souza. #Fever w associated leukocytosis -subclavian (pulled 07/16), blood cultures NGTD -negative Legionella, HIV, G&C, Syphilis -repeat echo showed improved cardiac function, no valvular abnormalities -MRI of brain and neck showed no abscess, diskitis or osteomyelitis -second set of blood cx show no growth #HSV (scrotal region) -Valtrex bid x 3 days #sacral cleft, patient said it was having some drainage -possible fungal, Fluconazole ordered #MSSA multilobar PNA complicated in association w influenza -Cefazolin #Septic shock: resolved. -Required pressors #Influenza: Tamiflu course completed #headaches -takes Tylenol for this -trial of ibuprofen since he is meeting limit on acetaminophen #AHRF -on room air today #Lactic acidosis -resolved #Substance abuse: snort/smokes meth. -Counseled on cessation #Tobacco dependence: -counseled on cessation #Tachycardia: febrile -resolved, will dc fluids #Sciatica: gabapentin #Social: recently jailed #DVT ppx: Lovenox #plan: Valtrex and fluconazole today. Subjective: Demetri said he upper back on the left side is hurting. Says overall he is feeling poorly. Objective: Vital Signs Temp Pulse Resp BP Pulse Ox 37.6 C 91 18 106/71 91 L 07/20/18 07:17 07/20/18 07:17 07/20/18 07:17 07/20/18 07:17 07/20/18 07:17 Laboratory Results 07/19/18 05:15 07/18/18 05:17 07/19/18 07/20/18 07/21/18 05:59 05:59 05:59 Intake Total 4116 Balance 4116 PT 17.1 SEC (12.0-15.0) H 07/13/18 05:15 INR 1.38 (0.83-1.16) H 07/13/18 05:15 - Physical Exam Constitutional: uncomfortable, No not in pain Eyes: PERRL Ears, Nose, Mouth, Throat: hearing normal Cardiovascular: regular rate and rhythym Respiratory: no respiratory distress Skin: warm, rash (scrotal area, HSV. sacral area w some redness, small area of excoriation) Musculoskeletal: full muscle strength Neurologic: AAOx3 Psychiatric: anxious ICD10 Worksheet Patient Problems: Problems Problem Status Onset Influenza Acute Pneumonia Acute
[2018-07-20] MEDS: valACYclovir 500 MG TAB PO SCH ×2 (13:45→20:31)
[2018-07-20] MEDS: FLUCONAZOLE 100 MG TAB PO SCH (13:45)
[2018-07-20] MEDS: NYSTATIN POWDER 15 GM BTL TP SCH ×2 (13:46→21:23)
[2018-07-20] MEDS: ALBUTEROL 3 ML DEYVIAL IH PRN (15:02)
[2018-07-21] MEDS: BENZONATATE 100 MG CAP PO PRN ×3 (00:40→16:16)
[2018-07-21] MEDS: oxyCODONE IR 5 MG TAB PO PRN ×3 (00:40→16:24)
[2018-07-21] MEDS: guaiFENesin/CODEINE PHOS 10 ML UDCUP PO PRN ×3 (03:00→20:00)
[2018-07-21] MEDS: ceFAZolin 2 GM/DEXTROSE 100 ML IV SCH ×3 (05:04→21:21)
[2018-07-21] MEDS: CEPACOL LOZENGE PO PRN ×2 (05:42→13:52)
[2018-07-21 06:01] LABS: PLATELET COUNT 376 10^3/uL (150-400)
[2018-07-21] MEDS: ENOXAPARIN 40 MG/0.4 ML SYR SC SCH (07:53)
[2018-07-21] MEDS: valACYclovir 500 MG TAB PO SCH ×2 (07:53→20:01)
[2018-07-21] MEDS: FLUCONAZOLE 100 MG TAB PO SCH (07:53)
[2018-07-21] MEDS: ACETAMINOPHEN 325 MG TAB PO PRN ×2 (07:53→16:16)
[2018-07-21] MEDS: guaiFENesin 600 MG TAB.ER PO SCH ×2 (07:54→20:01)
[2018-07-21] MEDS: GABAPENTIN 300 MG CAP PO SCH ×3 (07:54→21:21)
[2018-07-21] MEDS: FLUTICASONE NASAL 120 SPRAYS/16 GM MDI EACHNARE SCH (07:54)
[2018-07-21] MEDS: NYSTATIN POWDER 15 GM BTL TP SCH ×3 (07:55→21:21)
[2018-07-21] MEDS: IBUPROFEN 200 MG TAB PO PRN ×2 (10:26→20:01)
[2018-07-21] MEDS: DICLOFENAC SODIUM 1% 100 GM GEL TP SCH ×3 (13:52→20:02)
--- NOTE | 2018-07-21 13:54 | HOSPPROG ---
Hospitalist Progress Note Assessment/Plan: Demetri is a 38yo M who was diagnosed with influenza A and returned to the ED due to persistent fevers and worsening shortness of breath. #Fever w associated leukocytosis -subclavian (pulled 07/16), blood cultures NGTD -negative Legionella, HIV, G&C, Syphilis -repeat echo showed improved cardiac function, no valvular abnormalities -MRI of brain and neck showed no abscess, diskitis or osteomyelitis -second set of blood cx show no growth -still having a fever, will get a CT of his chest-having ongoing pain in his upper left back area #HSV (scrotal region) -Valtrex bid x 3 days #sacral cleft, patient said it was having some drainage -possible fungal, Fluconazole ordered #MSSA multilobar PNA complicated in association w influenza -Cefazolin #Septic shock: resolved. -Required pressors #Influenza: Tamiflu course completed #headaches -takes Tylenol for this -trial of ibuprofen since he is meeting limit on acetaminophen #AHRF -was on room air but now on oxygen #Lactic acidosis -resolved #Substance abuse: snort/smokes meth. -Counseled on cessation #Tobacco dependence: -counseled on cessation #Tachycardia: febrile -resolved, will dc fluids #Sciatica: gabapentin #Social: recently jailed #DVT ppx: Lovenox #plan: reviewed his care w Dr Souza, concerned he is having fevers and more upper back pain-will get a CT scan. Will dc iv Dilaudid and continue oxy-Demetri is aware of this. Encouraged him to get OOB and ambulate, he says he is anti- social and doesn't want to leave his room. Encouraged him to get oob and sit in the chair. Subjective: Demetri said he feels worse today, upper back hurts. Objective: Vital Signs Temp Pulse Resp BP Pulse Ox 38.7 C H 94 18 108/64 91 L 07/21/18 07:32 07/21/18 07:32 07/21/18 07:32 07/21/18 07:32 07/21/18 07:32 Laboratory Results 07/21/18 05:31 07/21/18 05:31 PT 17.1 SEC (12.0-15.0) H 07/13/18 05:15 INR 1.38 (0.83-1.16) H 07/13/18 05:15 - Physical Exam Constitutional: uncomfortable Eyes: PERRL Ears, Nose, Mouth, Throat: hearing normal Cardiovascular: regular rate and rhythym Respiratory: no respiratory distress, rhonchi (left lung scattered, right lung clear overall) Skin: warm Musculoskeletal: generalized weakness Neurologic: AAOx3 Psychiatric: interacting appropriately ICD10 Worksheet Patient Problems: Problems Problem Status Onset Influenza Acute Pneumonia Acute
--- NOTE | 2018-07-21 15:46 | PCMIDPN ---
Assessment/Plan: Assessment: Influenza A followed by secondary necrotic pneumonia with MSSA. Cefazolin monotherapy. He is making clinical improvements and today looks less ill and less toxic. Follow-up CT scan from 07/21/2018 shows the extent of necrotizing Staph aureus disease to be stable to slightly improved. His HSV outbreak is much improved today as well. We will continue him on Valtrex 500 mg p.o. Twice daily for a 3 day course. Plan: 1. Continue IV cefazolin. 2. Continue Valtrex 500 mg p.o. Twice daily x3 days. 3. Continue Fluconazole 100 mg p.o. Daily. 4. Follow clinical appearance. 07/21/18 15:43 Subjective: Patient is sitting up in his bed this afternoon eating fruit for lunch. His room is very dark. He said he is very tired but feeling that he is slowly starting to get better now. Breathing is stable. Less cough with less production. Objective: Cefazolin # 4 Valtrex # 2 Fluconazole # 2 Vital Signs Temp Pulse Resp BP Pulse Ox 38.7 C H 94 18 108/64 91 L 07/21/18 07:32 07/21/18 07:32 07/21/18 07:32 07/21/18 07:32 07/21/18 07:32 Laboratory Results 07/21/18 05:31 07/21/18 05:31 - Physical Exam General Appearance: WD/WN, alert, no apparent distress, toxic (Mildly) Respiratory: lungs clear, normal breath sounds, No respiratory distress, No crackles, No coarse breath sounds Cardiac/Chest: regular rate, rhythm, No tachycardia Skin: normal color, warm/dry, No rash Neuro/Psych: alert, normal mood/affect, oriented x 3 ICD10 Worksheet Patient Problems: Problems Problem Status Onset Influenza Acute Pneumonia Acute
--- NOTE | 2018-07-21 16:12 | ASMTCMCOM ---
CM Note CM Note Notes: Patient discussed with BENITEZ Florence. Patient down for chest CT when CM went to visit with patient to [facility]. Patient continues on IV antibiotics and experiencing worsening shortness of breath and now on oxygen. CM to follow. D/C Plan: hubert independent Date Signed: 07/21/2018 04:11 PM Electronically Signed By:Rowena Harrison
[2018-07-22] MEDS: guaiFENesin/CODEINE PHOS 10 ML UDCUP PO PRN ×3 (03:48→21:05)
[2018-07-22] MEDS: IBUPROFEN 200 MG TAB PO PRN ×2 (03:48→11:46)
[2018-07-22] MEDS: DICLOFENAC SODIUM 1% 100 GM GEL TP SCH ×5 (05:18→21:07)
[2018-07-22] MEDS: ceFAZolin 2 GM/DEXTROSE 100 ML IV SCH ×3 (05:18→21:04)
[2018-07-22] MEDS: CEPACOL LOZENGE PO PRN ×3 (10:26→21:06)
[2018-07-22] MEDS: guaiFENesin 600 MG TAB.ER PO SCH ×2 (10:27→21:05)
[2018-07-22] MEDS: ENOXAPARIN 40 MG/0.4 ML SYR SC SCH (10:27)
[2018-07-22] MEDS: GABAPENTIN 300 MG CAP PO SCH ×3 (10:27→21:06)
[2018-07-22] MEDS: valACYclovir 500 MG TAB PO SCH ×2 (10:27→21:05)
[2018-07-22] MEDS: FLUTICASONE NASAL 120 SPRAYS/16 GM MDI EACHNARE SCH (10:28)
[2018-07-22] MEDS: FLUCONAZOLE 100 MG TAB PO SCH (10:28)
--- NOTE | 2018-07-22 10:54 | ASMTCMCOM ---
CM Note CM Note Notes: Tonia Blank, annual giving officer (P# [phone]) stopped by and left her card w/ CM. Pts tracking bracelet has been removed because he requires imaging during this hospitalization. Pt will need to be put it back on once medically stable. CM will need to notify Tonia 2 hours in advance prior to d/c. CM made a referral to [facility]. Pt may d/c independent when medically stable. CM available for other needs. Date Signed: 07/22/2018 10:54 AM Electronically Signed By:ROCK Lugo
[2018-07-22] MEDS: NYSTATIN POWDER 15 GM BTL TP SCH ×3 (11:49→21:07)
--- NOTE | 2018-07-22 16:01 | HOSPPROG ---
Hospitalist Progress Note Assessment/Plan: Demetri is a 38yo M who was diagnosed with influenza A and returned to the ED due to persistent fevers and worsening shortness of breath. #Fever w associated leukocytosis -subclavian (pulled 07/16), blood cultures NGTD -negative Legionella, HIV, G&C, Syphilis -repeat echo showed improved cardiac function, no valvular abnormalities -MRI of brain and neck showed no abscess, diskitis or osteomyelitis -second set of blood cx show no growth -repeat CT yesterday stable -has not had a fever since yesterday morning #HSV (scrotal region) -Valtrex bid x 3 days #sacral cleft, patient said it was having some drainage -possible fungal, Fluconazole ordered #MSSA multilobar PNA complicated in association w influenza -Cefazolin #Septic shock: resolved. -Required pressors #Influenza: Tamiflu course completed #headaches -takes Tylenol for this -trial of ibuprofen since he is meeting limit on acetaminophen #AHRF -was on room air but now on oxygen #Lactic acidosis -resolved #Substance abuse: snort/smokes meth. -Counseled on cessation #Tobacco dependence: -counseled on cessation #Tachycardia: febrile -resolved, will dc fluids #Sciatica: gabapentin #Social: recently jailed #DVT ppx: Lovenox #plan:continue current treatment, Demetri looks much improved today. Is asking when he will go home, will be able to stay with his dad who lives here locally. Subjective: Demetri is tired but feeling better. Objective: Vital Signs Temp Pulse Resp BP Pulse Ox 36.7 C 77 18 104/63 94 07/22/18 08:00 07/22/18 08:00 07/22/18 08:00 07/22/18 08:00 07/22/18 08:00 Laboratory Results 07/21/18 05:31 07/21/18 05:31 07/21/18 07/22/18 07/23/18 05:59 05:59 05:59 Intake Total 318 Balance 318 PT 17.1 SEC (12.0-15.0) H 07/13/18 05:15 INR 1.38 (0.83-1.16) H 07/13/18 05:15 - Physical Exam Constitutional: no apparent distress, appears nourished Eyes: PERRL Ears, Nose, Mouth, Throat: hearing normal Cardiovascular: regular rate and rhythym Respiratory: no respiratory distress (lung sounds improved today, right lung cTA , left lung w few rhonchi) Skin: warm Musculoskeletal: generalized weakness Neurologic: AAOx3 Psychiatric: interacting appropriately ICD10 Worksheet Patient Problems: Problems Problem Status Onset Influenza Acute Pneumonia Acute
[2018-07-22] MEDS: oxyCODONE IR 5 MG TAB PO PRN ×2 (17:18→21:04)
--- NOTE | 2018-07-22 18:19 | PCMIDPN ---
Assessment/Plan: Assessment/Plan: * Multifocal pneumonia due to MSSA status post influenza A: Intermittent fever and persistent leukocytosis. CT scan yesterday shows stable to slightly improved findings. Persistent cavitation noted. Will continue cefazolin with anticipated slow resolution given necrotizing pneumonia and cavitation with Staph aureus as etiology. Continues to need IV therapy based on above findings. 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 Will assess over time with plans for short course of therapy. 07/22/18 18:16 Subjective: Patient complains of persistent cough and shortness of breath. Up ambulating on the unit. Not requiring oxygen at rest. Objective: Vital Signs Temp Pulse Resp BP Pulse Ox 36.9 C 69 18 103/64 92 07/22/18 16:15 07/22/18 16:15 07/22/18 16:15 07/22/18 16:15 07/22/18 16:15 Laboratory Results 07/21/18 05:31 07/21/18 05:31 07/21/18 07/22/18 07/23/18 05:59 05:59 05:59 Intake Total 318 Balance 318 Cefazolin 2 g IV q.8 hours # 5, antibiotics # 11 Valtrex # 3 Fluconazole # 3 CT scan of chest 07/21/2018 with stable multifocal pneumonia and cavitation - Physical Exam General Appearance: alert, no apparent distress, non-toxic EENT: No scleral icterus, No thrush, No conjunctival petechiae Respiratory: crackles (Left base), No respiratory distress Cardiac/Chest: regular rate, rhythm Extremities: No inflammation Abdomen: non-tender, No distended Skin: No embolic lesions ICD10 Worksheet Patient Problems: Problems Problem Status Onset Influenza Acute Pneumonia Acute
[2018-07-22] MEDS: ACETAMINOPHEN 325 MG TAB PO PRN (23:43)
[2018-07-23] MEDS: ceFAZolin 2 GM/DEXTROSE 100 ML IV SCH ×3 (05:39→23:17)
[2018-07-23] MEDS: DICLOFENAC SODIUM 1% 100 GM GEL TP SCH ×4 (05:39→19:55)
[2018-07-23] MEDS: guaiFENesin/CODEINE PHOS 10 ML UDCUP PO PRN ×3 (06:04→23:23)
[2018-07-23] MEDS: IBUPROFEN 200 MG TAB PO PRN (06:05)
[2018-07-23] MEDS: FLUCONAZOLE 100 MG TAB PO SCH (09:44)
[2018-07-23] MEDS: ENOXAPARIN 40 MG/0.4 ML SYR SC SCH (09:44)
[2018-07-23] MEDS: guaiFENesin 600 MG TAB.ER PO SCH ×2 (09:44→19:53)
[2018-07-23] MEDS: valACYclovir 500 MG TAB PO SCH ×2 (09:44→19:53)
[2018-07-23] MEDS: GABAPENTIN 300 MG CAP PO SCH ×3 (09:44→23:17)
[2018-07-23] MEDS: FLUTICASONE NASAL 120 SPRAYS/16 GM MDI EACHNARE SCH (09:55)
--- NOTE | 2018-07-23 14:49 | HOSPPROG ---
Hospitalist Progress Note Assessment/Plan: Demetri is a 38yo M who was diagnosed with influenza A and returned to the ED due to persistent fevers and worsening shortness of breath. First encounter, chart reviewed. #Fever w associated leukocytosis -subclavian (pulled 07/16), blood cultures NGTD -negative Legionella, HIV, G&C, Syphilis -repeat echo showed improved cardiac function, no valvular abnormalities -MRI of brain and neck showed no abscess, diskitis or osteomyelitis -second set of blood cx show no growth -repeat CT yesterday stable -has not had a fever for >48 hours #HSV (scrotal region) -Valtrex bid x 3 days #sacral cleft, patient said it was having some drainage -possible fungal, Fluconazole ordered #MSSA multilobar PNA complicated in association w influenza -Cefazolin #Septic shock: resolved. -Required pressors #Influenza: Tamiflu course completed #headaches -takes Tylenol for this -trial of ibuprofen since he is meeting limit on acetaminophen #AHRF -was on room air but now on oxygen #Lactic acidosis -resolved #Substance abuse: snort/smokes meth. -Counseled on cessation #Tobacco dependence: -counseled on cessation #Tachycardia: febrile -resolved, will dc fluids #Sciatica: gabapentin #Social: recently jailed #DVT ppx: Lovenox #plan:continue current treatment Is asking when he will go home, will be able to stay with his dad who lives here locally. Subjective: Feeling better today. Up walking the halls. No specific issues. Objective: Vital Signs Temp Pulse Resp BP Pulse Ox 36.8 C 62 16 92/59 L 89 L 07/23/18 07:43 07/23/18 07:43 07/23/18 07:43 07/23/18 07:43 07/23/18 00:00 Microbiology 07/17/18 09:18 Blood Culture - Final Blood 07/17/18 09:18 Blood Culture - Final Blood Laboratory Results 07/21/18 05:31 07/21/18 05:31 07/22/18 07/23/18 07/24/18 05:59 05:59 05:59 Intake Total 518 Balance 518 PT 17.1 SEC (12.0-15.0) H 07/13/18 05:15 INR 1.38 (0.83-1.16) H 07/13/18 05:15 - Physical Exam Constitutional: no apparent distress, appears nourished, not in pain Eyes: PERRL, anicteric sclera, EOMI Ears, Nose, Mouth, Throat: moist mucous membranes, hearing normal, ears appear normal Cardiovascular: regular rate and rhythym, No JVD, No edema Respiratory: no respiratory distress, reduced air movement, rhonchi Gastrointestinal: normoactive bowel sounds, No tenderness, No ascites Skin: warm, normal color, rash, No mottled Musculoskeletal: normal joint ROM, no joint effusions, generalized weakness Neurologic: AAOx3 Psychiatric: interacting appropriately, not anxious, not encephalopathic ICD10 Worksheet Patient Problems: Problems Problem Status Onset Influenza Acute Pneumonia Acute
[2018-07-23] MEDS: oxyCODONE IR 5 MG TAB PO PRN ×2 (14:55→19:54)
[2018-07-23] MEDS: NYSTATIN POWDER 15 GM BTL TP SCH ×3 (14:56→23:24)
[2018-07-23] MEDS: CEPACOL LOZENGE PO PRN ×2 (15:22→17:57)
[2018-07-23] MEDS: BENZONATATE 100 MG CAP PO PRN (17:57)
[2018-07-24] MEDS: ceFAZolin 2 GM/DEXTROSE 100 ML IV SCH (05:40)
[2018-07-24] MEDS: guaiFENesin/CODEINE PHOS 10 ML UDCUP PO PRN (05:43)
[2018-07-24] MEDS: DICLOFENAC SODIUM 1% 100 GM GEL TP SCH (06:02)
[2018-07-24 09:52] VITALS: BP 101/71
[2018-07-24] MEDS: ENOXAPARIN 40 MG/0.4 ML SYR SC SCH (10:12)
[2018-07-24] MEDS: valACYclovir 500 MG TAB PO SCH (10:12)
[2018-07-24] MEDS: GABAPENTIN 300 MG CAP PO SCH (10:12)
[2018-07-24] MEDS: guaiFENesin 600 MG TAB.ER PO SCH (10:12)
[2018-07-24] MEDS: FLUCONAZOLE 100 MG TAB PO SCH (10:12)
[2018-07-24] MEDS: NYSTATIN POWDER 15 GM BTL TP SCH (10:13)
[2018-07-24] MEDS: FLUTICASONE NASAL 120 SPRAYS/16 GM MDI EACHNARE SCH (10:13)
--- NOTE | 2018-07-24 11:49 | ASMTLACE ---
CESARIO Length of stay for Answers: 7-13 days current admission Acuity / Level of Answers: Yes Care: Did the patient have an inpatient admission? Comorbidities - select Answers: Other Notes: Sciatica, Former all that apply smoker, Drug user # of Emergency department Answers: 5-8 visits in the last 6 months Social determinants Answers: History of substance abuse (ETOH, street drugs, prescription drugs, etc.) Score: 16 Date Signed: 07/24/2018 11:48 AM Electronically Signed By:Della Rosario RN
--- NOTE | 2018-07-24 11:50 | ASMTCMCOM ---
CM Note CM Note Notes: Pt completed IV abx, will dc independent back to parents house. surveillance sensor officer Tonia notified and will replace ankle braclet. DC Plan: Independent Date Signed: 07/24/2018 11:50 AM Electronically Signed By:Della Rosario RN
--- NOTE | 2018-07-24 12:55 | PCMIDPN ---
Assessment/Plan: Assessment/Plan: * Multifocal pneumonia due to MSSA status post influenza A: Continues with gradual clinical improvement. No further fever present. Remains on room air without need for supplemental oxygen. Will transition to doxycycline 100 mg orally twice daily for at least 2 more weeks of therapy given presence of necrotizing pneumonia. Side effects of doxycycline discussed with patient including risk of photosensitivity, esophagitis, and need to avoid concomitant calcium intake. Will have follow-up with Dr. Souza next week. * Perineal HSV: Resolved. Patient request suppressive acyclovir which he has used in the past at 400 mg orally daily. Still has some element of yeast infection so will continue fluconazole x7 additional days. Clinical findings and plan were reviewed with patient and Bri Burks NP. 07/24/18 12:51 Subjective: Patient feels significantly improved. No significant chest pain or shortness of breath. Some cough with sputum production persists. HSV lesions resolving. Objective: Vital Signs Temp Pulse Resp BP Pulse Ox 37.1 C 80 16 101/71 89 L 07/24/18 08:00 07/24/18 08:00 07/24/18 08:00 07/24/18 08:00 07/24/18 08:00 Laboratory Results 07/21/18 05:31 07/21/18 05:31 07/23/18 07/24/18 07/25/18 05:59 05:59 05:59 Intake Total 518 Balance 518 Cefazolin 2 g IV q.8 hours # 7, antibiotics # 13 Fluconazole/Valtrex - Physical Exam General Appearance: alert, no apparent distress EENT: No scleral icterus, No thrush, No conjunctival petechiae Respiratory: lungs clear, No respiratory distress Cardiac/Chest: regular rate, rhythm Extremities: No inflammation Abdomen: non-tender, No distended Male Genitalia: other (HSV resolved with some mild residual candidal rash) ICD10 Worksheet Patient Problems: Problems Problem Status Onset Influenza Acute Pneumonia Acute
--- NOTE | 2018-07-24 16:45 | GDS ---
DISCHARGE DIAGNOSES: 1. Leukocytosis. 2. Fever. 3. Herpes simplex virus. 4. Methicillin-susceptible Staphylococcus aureus multilobular pneumonia. 5. Septic shock. 6. Influenza. 7. Lactic acidosis. 8. Substance abuse. 9. Tobacco dependency. 10. Tachycardia. CONSULTATIONS: Infectious Disease. PHYSICAL EXAM: GENERAL: The patient is alert. VITAL SIGNS: Afebrile at 37.1, pulse 80, respirator y rate 16. Blood pressure is 101/71. He is saturating 90% on room air. I have seen and evaluated t he patient on the day of discharge. HOSPITAL COURSE: 1. The patient is a 38-year-old male who presented to the emergency room with complaints of fever an d shortness of breath. He was evaluated and diagnosed with MSSA multilobular pneumonia. During this hospitalization, he received antibiotic therapy and will continue antibiotics in the outpatient sett ing. 2. Fever and leukocytosis. This is multifactorial and has been evaluated. His fever has resolved. 3. HSV. Will continue Valtrex in the outpatient setting with suppressive therapy. 4. Septic shock. The patient required pressors in the intensive care unit. This has resolved. 5. Influenza. Tamiflu has been completed. 6. Lactic acidosis. This has resolved. 7. History of substance abuse. Cessation counseling has been administered. 8. Tobacco dependency. 9. Tachycardia. This has resolved during his hospital course. DISPOSITION: The patient will be discharged independently to his parent's house. FOLLOWUP: With [facility], as well as Infectious Disease. DISCHARGE MEDICATIONS: Please refer to EMR form. I have provided the patient prescriptions for Valt get, nystatin, doxycycline, acyclovir, Diflucan. Discussed the patient's disposition with Dr. Rito palmer of Infectious Disease, who is in agreement with this plan. I spent greater than 35 minutes in the care, coordination, and management of the patient's discharge. /[id number]/MODL
== END 2018-07-24 11:43 | disposition home or self-care (01) | DRG 720 ==
LOC: INTOOBSV 18:08 → F3E 20:20 → F2N 07-13 01:13 → OBSVTOIN 07-13 10:41 → F3E 07-15 18:13
PROVIDERS: ADMIT Internal Medicine; ATTEND Internal Medicine
PROC: 05H633Z Insertion of Infusion Device into Left Subclavian Vein, Percutaneous Approach (ICD-10-PCS; principal; 2018-07-13)
DX: A41.01 Sepsis due to Methicillin susceptible Staphylococcus aureus (principal); R65.21 Severe sepsis with septic shock; J10.08 Influenza due to other identified influenza virus with other specified pneumonia; E87.2 Acidosis; E86.9 Volume depletion, unspecified; B00.9 Herpesviral infection, unspecified; F17.200 Nicotine dependence, unspecified, uncomplicated; Z86.14 Personal history of Methicillin resistant Staphylococcus aureus infection
CPT/HCPCS: 87449-90; 96365; 97161-GP; 97165-GO; A9585; G0378; G0472; J0456; J0690; J0696; J1170; J1650; J1720; J1885; J1956; J2020; J2270; J2405; J2543; J3370; J3411; J7613; Q9967

== ENCOUNTER → 2018-08-02 | Outpatient (CLI) | payer MEDICAID | LOC: FIMAGING 14:45 → FLAB 14:45 → EDSTATUS 14:50 | PROVIDERS: ATTEND Internal Medicine Infectious Disease | DX: J10.1 Influenza due to other identified influenza virus with other respiratory manifestations (principal); J18.9 Pneumonia, unspecified organism ==